=== PATIENT | female | born 1950 | race Caucasian/White ===

== ENCOUNTER → 2016-09-16 | Outpatient (CLI) | payer OTHER ==
[~2016-09-16] MED LIST: CZR50 PO; RANI300T2 PO; SIMV20TA2 PO; SYN88 PO
[2016-09-16 11:01] LABS: HEMATOCRIT 43.3 % (37-47); MEAN CELL VOLUME 91.9 fL (80-100); MEAN CORPUSCULAR HEMOGLOBIN 30.4 pg (25-34); MEAN PLATELET VOLUME 9.8 fL (7.4-10.4); PLATELET COUNT 133 K/uL (130-400); RED BLOOD COUNT 4.71 M/uL (4.2-5.4)
[2016-09-16 11:22] LABS: ALT/SGPT 27 U/L (12-78); BLOOD UREA NITROGEN 21 mg/dl (7-18); BUN/CREATININE RATIO 22.4 (10-20); CARBON DIOXIDE 28 mmol/L (21-32); CHLORIDE 107 mmol/L (98-107); CHOLESTEROL 182 mg/dl (0-200); CREATININE 0.95 mg/dl (0.60-1.20); GLUCOSE 106 mg/dl (70-99); POTASSIUM 3.9 mmol/L (3.5-5.1); SODIUM 142 mmol/L (136-145); TRIGLYCERIDES 113 mg/dl (0-150); VERY LOW DENSITY LIPOPROT CALC 23 mg/dl
[2016-09-16 11:23] LABS: CALCIUM 9.4 mg/dl (8.5-10.1)
[2016-09-16 11:32] LABS: ALB/GLOB RATIO 1.3 (0.9-2); ALKALINE PHOSPHATASE 59 U/L (45-117); AST/SGOT 20 U/L (15-37); CHOLESTEROL/HDL RATIO 3.3; HDL CHOLESTEROL 55 mg/dl; LDL CHOLESTEROL CALCULATED 104 mg/dl
[2016-09-16 13:06] LABS: BASO % 0.3 %; BASO ABS # 0.03 K/uL (0-0.2); COMPLETE YES; EOS % 1.2 %; IG% 0.1 %; LYMPH % 70.4 %; LYMPH ABS # 6.27 K/uL (1.2-3.4); MONO % 3.9 %; NEUT % 24.1 %; SMUDGE CELLS PRESENT
== END | disposition home or self-care (01) ==
LOC: C.LABSPEC 16:11
PROVIDERS: ATTEND Internal Medicine
DX: R73.09 Other abnormal glucose (principal); R31.29 Other microscopic hematuria

== ENCOUNTER → 2016-09-24 | Outpatient (CLI) | payer OTHER ==
[2016-09-24 15:01] LABS: URINE APPEARANCE CLEAR (CLEAR); URINE BILIRUBIN NEG (NEG); URINE COLOR YELLOW; URINE EPITHELIAL CELL AUTO 0-5 /lpf (0-5); URINE NITRITE POS (NEG); URINE PH 6.5 (4.5-7.5); URINE SPECIFIC GRAVITY 1.008 (1.000-1.030); UROBILINOGEN NEG (NEG)
[2016-09-24 15:16] LABS: MANUAL MICROSCOPIC REQUIRED? NO; REVIEW REQ? NO
== END | disposition home or self-care (01) ==
LOC: C.LAB1850 10:59
PROVIDERS: ATTEND Internal Medicine
DX: N39.0 Urinary tract infection, site not specified (principal)

== ENCOUNTER → 2017-01-18 | Outpatient (CLI) | payer OTHER ==
[2017-01-18 16:39] LABS: URINE APPEARANCE CLEAR (CLEAR); URINE BILIRUBIN NEG (NEG); URINE COLOR DK YELLOW; URINE EPITHELIAL CELL AUTO 20-30 /lpf (0-5); URINE NITRITE POS (NEG); URINE SPECIFIC GRAVITY 1.015 (1.000-1.030); UROBILINOGEN NEG (NEG)
[2017-01-18 16:46] LABS: MANUAL MICROSCOPIC REQUIRED? NO; REVIEW REQ? NO
== END | disposition home or self-care (01) ==
LOC: C.LAB1850 15:42
PROVIDERS: ATTEND Internal Medicine
DX: N39.0 Urinary tract infection, site not specified (principal)

== ENCOUNTER → 2017-03-01 | Outpatient (CLI) | payer OTHER ==
[2017-03-01 13:05] LABS: URINE APPEARANCE CLEAR (CLEAR); URINE BILIRUBIN NEG (NEG); URINE COLOR YELLOW; URINE NITRITE NEG (NEG); URINE PH 7.5 (4.5-7.5); URINE SPECIFIC GRAVITY 1.008 (1.000-1.030); UROBILINOGEN NEG (NEG); ZZUR CULT IF INDIC CLEAN CATCH NO
[2017-03-01 13:13] LABS: MANUAL MICROSCOPIC REQUIRED? YES; REVIEW REQ? NO
[2017-03-01 13:26] LABS: URINE RBC 0-4 /hpf (0-4)
[2017-03-01 13:27] LABS: URINE BACTERIA NEG (NEG)
== END | disposition home or self-care (01) ==
LOC: C.LABSPEC 12:19
PROVIDERS: ATTEND Internal Medicine
DX: N39.0 Urinary tract infection, site not specified (principal)

== ENCOUNTER → 2017-03-03 | Outpatient (CLI) | payer OTHER ==
[2017-03-03 18:02] LABS: BLOOD UREA NITROGEN 31 mg/dl (7-18); BUN/CREATININE RATIO 31.4 (10-20); CREATININE 0.99 mg/dl (0.60-1.20)
== END | disposition home or self-care (01) ==
LOC: C.LAB 16:08
PROVIDERS: ATTEND Nurse Practitioner Adult Health
DX: N28.9 Disorder of kidney and ureter, unspecified (principal)

== ENCOUNTER → 2017-03-21 | Outpatient (CLI) | payer OTHER ==
[~2017-03-21] MED LIST changes: +OPTIRAY 320 IV PRN
--- NOTE | 2017-03-21 10:08 | DIAGNOSTIC IMAGING REPORT ---
ABD/PELVIS COMBO CT DOSE: 1114.89 mGycm HISTORY: Renal lesion N28.9 Renal lesionnot diabetic, no latex allergy, iodine allergy TECHNIQUE: Multiaxial CT images of the abdomen and pelvis were performed pre and post intravenous contrast enhancement. A dose lowering technique was utilized adhering to the principles of ALARA. COMPARISON STUDY: 03/21/2017 FINDINGS: Minimal chronic atelectatic/fibrotic changes both lung bases liver is uniform throughout. Spleen pancreas remain unremarkable. There is a small hiatal hernia. Left kidney enhances uniformly. There are no abnormal renal calcifications. There is a posterior diaphragmatic hernia unchanged. The adrenal glands are normal. The right kidney continues to show a heterogeneous nodule lateral aspect lower abdomen maximum dimensions of 1.7 x 2.15 cm. This is unchanged compared to the prior study where maximum dimensions were 2.1 cm. Enhancement characteristics are similar. There continues to be components of fat within this structure raising the possibility of angiomyolipoma. The bowel pattern remains nonobstructive. There are several small retroperitoneal nodes none of which exceed 6 mm. IMPRESSION: 1. Stable heterogeneous nodule lower pole right kidney.. 2. Given the fact containment and minimal enhancement, the possibility of a benign angiomyolipoma must be considered. 3. Appropriate CT surveillance is suggested as follow-up. 4. Unchanging minimal fibrotic/atelectatic change at both lung bases. The above report was generated using voice recognition software. It may contain grammatical, syntax or spelling errors. Electronically signed by: Harpreet Zhu M.D. 03/21/2017 10:07 AM Dictated Date/Time: 03/21/2017 9:58 AM
== END | disposition home or self-care (01) ==
LOC: C.CTS 09:30
PROVIDERS: ATTEND Nurse Practitioner Adult Health
DX: N28.89 Other specified disorders of kidney and ureter (principal)

== ENCOUNTER → 2017-05-17 | Outpatient (CLI) | payer OTHER ==
[~2017-05-17] MED LIST changes: -OPTIRAY 320 IV PRN
== END | disposition home or self-care (01) ==
LOC: C.LAB1850 13:31
PROVIDERS: ATTEND Nurse Practitioner Adult Health
DX: N39.0 Urinary tract infection, site not specified (principal)

== ENCOUNTER → 2017-06-01 | Outpatient (CLI) | payer OTHER | END | disposition home or self-care (01) | LOC: C.LAB1850 11:44 | PROVIDERS: ATTEND Nurse Practitioner Adult Health | DX: N39.0 Urinary tract infection, site not specified (principal) ==

== ENCOUNTER → 2017-06-07 | Outpatient (CLI) | payer OTHER | END | disposition home or self-care (01) | LOC: C.LAB1850 12:50 | PROVIDERS: ATTEND Nurse Practitioner Adult Health | DX: N39.0 Urinary tract infection, site not specified (principal) ==

== ENCOUNTER → 2017-06-10 | Outpatient (CLI) | payer OTHER ==
[2017-06-10 12:04] LABS: HEMATOCRIT 39.8 % (37-47); HEMOGLOBIN 13.4 g/dL (12.0-16.0); MEAN CELL VOLUME 89.8 fL (80-100); MEAN CORPUSCULAR HEMOGLOBIN 30.2 pg (25-34); MEAN CORPUSCULAR HGB CONC 33.7 g/dl (32-36); MEAN PLATELET VOLUME 10.5 fL (7.4-10.4); PLATELET COUNT 141 K/uL (130-400); RED CELL DISTRIBUTION WIDTH CV 13.5 % (11.5-14.5); RED CELL DISTRIBUTION WIDTH SD 44.2 fL (36.4-46.3); WHITE BLOOD COUNT 8.51 K/uL (4.8-10.8)
[2017-06-10 12:36] LABS: ALKALINE PHOSPHATASE 68 U/L (45-117); ALT/SGPT 31 U/L (12-78); AST/SGOT 24 U/L (15-37); BLOOD UREA NITROGEN 22 mg/dl (7-18); CALCIUM 9.5 mg/dl (8.5-10.1); CARBON DIOXIDE 27 mmol/L (21-32); CHOLESTEROL 177 mg/dl (0-200); CREATININE 0.87 mg/dl (0.60-1.20); GLUCOSE 100 mg/dl (70-99); LDL CHOLESTEROL CALCULATED 101 mg/dl; POTASSIUM 3.7 mmol/L (3.5-5.1); SODIUM 136 mmol/L (136-145); TOTAL PROTEIN 7.6 gm/dl (6.4-8.2)
[2017-06-10 12:46] LABS: BASO % 0.2 %; BASO ABS # 0.02 K/uL (0-0.2); EOS % 1.2 %; IG# 0.01 K/uL (0.00-0.02); LYMPH % 73.3 %; LYMPH ABS # 6.24 K/uL (1.2-3.4); MONO % 1.4 %; MONO ABS # 0.12 K/uL (0.11-0.59); NEUT % 23.8 %; NEUT ABS # 2.02 K/uL (1.4-6.5)
== END | disposition home or self-care (01) ==
LOC: C.LAB1850 10:15
PROVIDERS: ATTEND Internal Medicine
DX: R73.09 Other abnormal glucose (principal); C91.10 Chronic lymphocytic leukemia of B-cell type not having achieved remission; E78.00 Pure hypercholesterolemia, unspecified; E03.9 Hypothyroidism, unspecified

== ENCOUNTER → 2017-06-14 | Outpatient (CLI) | payer OTHER ==
--- NOTE | 2017-06-14 14:08 | DIAGNOSTIC IMAGING REPORT ---
KUB HISTORY: Acute UTI N39.0 UTI (urinary tract infection)[id number] COMPARISON: CT abdomen and pelvis 03/21/2017 FINDINGS: The bowel gas pattern is non-obstructive. Mild to moderate stool volume throughout the colon. There is no organomegaly. Calcifications of the pelvis suggest phleboliths. No renal calculi. No ureteral calculi. No pneumoperitoneum or pneumatosis. No fracture. Mild dextroscoliosis of the lumbar spine. IMPRESSION: 1. No renal or ureteral stones. 2. Nonobstructive bowel gas pattern. Electronically signed by: Ankush Buchanan M.D. 06/14/2017 2:07 PM Dictated Date/Time: 06/14/2017 2:05 PM
== END | disposition home or self-care (01) ==
LOC: C.RAD1850 13:44
PROVIDERS: ATTEND Urology
DX: N39.0 Urinary tract infection, site not specified (principal)

== ENCOUNTER → 2017-08-08 | Outpatient (CLI) | payer OTHER | END | disposition home or self-care (01) | LOC: C.LAB1850 14:14 | PROVIDERS: ATTEND Nurse Practitioner Adult Health | DX: N39.0 Urinary tract infection, site not specified (principal) ==

== ENCOUNTER → 2017-08-18 | Outpatient (CLI) | payer OTHER | END | disposition home or self-care (01) | LOC: C.MAMM 08:49 | PROVIDERS: ATTEND Internal Medicine | DX: C91.90 Lymphoid leukemia, unspecified not having achieved remission (principal); D84.9 Immunodeficiency, unspecified; M85.89 Other specified disorders of bone density and structure, multiple sites; Z78.0 Asymptomatic menopausal state ==

== ENCOUNTER → 2017-11-04 | Outpatient (CLI) | payer OTHER ==
[~2017-11-04] MED LIST changes: +OPTIRAY 320 IV PRN
--- NOTE | 2017-11-04 08:40 | DIAGNOSTIC IMAGING REPORT ---
ANGIO ABD/PELVIS WITH CONTRAST CLINICAL HISTORY: 67 years-old Female presenting with RIGHT RENAL LESION. TECHNIQUE: Multidetector CT angiography of the abdomen and pelvis was performed after the administration of intravenous contrast. 3-D volumetric, curved planar reformatted (CPR), and/or maximum intensity projection (MIP) images were subsequently reconstructed for review. IV contrast: 118 mL of Optiray 320. A dose lowering technique was used consistent with the principles of ALARA (as low as reasonably achievable). Stenosis measurements were based on NASCET-like criteria. COMPARISON: 03/21/2017. CT DOSE (mGy.cm): The estimated cumulative dose is 554.92 mGy.cm. FINDINGS: Operating Systems Specialist topogram: Unremarkable. Vasculature: Abdominal aorta normal in course and caliber. Celiac, superior mesenteric, inferior mesenteric, and bilateral single renal arteries patent. Notably, there is a separate aortic origin of the common hepatic artery with the celiac axis supplies the left gastric and splenic arteries. Bilateral common, internal, and external iliac arteries patent. Bilateral common, superficial, and deep femoral arteries patent in their visualized portions. The renal mass at the lower pole the right kidney may have a small parasitic vessel supplying it as a branch of the right L1 lumbar artery (series 3 image 145). Remaining abdomen and pelvis: Lung bases: Minimal basilar opacities, likely atelectasis. Fat-containing Bochdalek hernia on the left noted. Normal heart size. No pericardial or pleural effusion. Liver: Normal morphology. No focal lesion allowing for the early arterial phase of contrast. Biliary: No intrahepatic or extrahepatic biliary ductal dilatation. Normal gallbladder. Pancreas: Normal. Spleen: Normal. Adrenal glands: Normal. Kidneys and ureters: Redemonstration of the heterogeneously enhancing exophytic 2.5 cm mass arising from the lower pole of the right kidney. This previous measured 2.4 cm. There is macroscopic fat contained within this lesion. Minor parasitic vessel vascular supply via the right L1 lumbar artery. No surrounding hemorrhage. Additional small focal fat evident as a cortical defect in the interpolar region of the right kidney, likely angiomyolipoma. No nephrolithiasis. No hydronephrosis. Extrarenal pelvises noted. Bladder: Focus of gas in the bladder possibly due to recent catheterization or instrumentation. Pelvic organs: Uterus surgically absent. No adnexal masses. Bowel: Moderate stool burden. Diverticulosis of the sigmoid colon. No surrounding inflammatory change. The appendix is normal. Feces in the terminal ileum may suggest delayed transit. No bowel obstruction. Small hiatal hernia. Peritoneal cavity: No free fluid or intraperitoneal gas. Lymph nodes: Prominent left common and external iliac lymph nodes measuring up to 10 mm in the short axis. These have not increased in size. Abdominal wall: Small fat-containing umbilical hernia. Musculoskeletal: Degenerative changes of the spine. IMPRESSION: 1. Essentially stable size of the exophytic mass arising from the lower pole of the right kidney. Vascular supply primarily via the right renal artery with a small component via parasitic supply from the right L1 lumbar artery. No hemorrhage. This may have minimally increased in size since 2012. The presence of macroscopic fat within this lesion is most suggestive of an angiomyolipoma. Rarely, renal cell carcinoma has been reported to contain macroscopic fat. Continued surveillance and urologic consultation recommended. 2. Additional smaller angiomyolipoma in the right kidney suggested. 3. Diverticulosis. 4. Borderline enlarged left common and left external iliac lymph nodes, unchanged. These may be reactive but are indeterminate. Attention on follow-up. Electronically signed by: Magnus Ho M.D. 11/04/2017 8:39 AM Dictated Date/Time: 11/04/2017 8:24 AM
== END | disposition home or self-care (01) ==
LOC: C.CTS 07:37
PROVIDERS: ATTEND Surgery Vascular Surgery
DX: D17.71 Benign lipomatous neoplasm of kidney (principal)

== ENCOUNTER 2022-09-22 11:11 | Inpatient (IN) ==
--- NOTE | 2022-09-22 12:18 | Emergency Department Note ---
History of Present Illness General Chief complaint: Infection Stated complaint: REF BY PT FOR AN IV, INFECTION Time Seen by Provider: 09/22/22 11:52 History of Present Illness Patient is a 72-year-old female with past medical history significant for hypothyroidism, hypertension, dyslipidemia, and CLL, who presents the emergency department for evaluation of urinary symptoms, and a positive urine culture as an outpatient. Patient has a history of angiomyolipoma of the right kidney, history of interstitial cystitis secondary to her CLL treatment, and frequent UTIs. She was seen by urology 2 weeks ago today after she developed dysuria, frequency and urgency. She unfortunately has multiple antibiotic aller gies/intolerances. She was placed on Macrobid x5 days. The LAUNDRY WASHER at urology sent her urine for a PCR, which was reported yesterday as positive. The patient was called yesterday and told that she needed to go to the emergency department for IV antibiotic therapy. Patient continues to report the ongoing urinary symptoms that are helped by taking OTC Azo. No abdominal pain, back or pain pain. No f ever although she did report some chills. No vomiting. Home Medications Medication Instructions Recorded Confirmed Type amlodipine 5 mg tablet 5 mg PO DAILY #90 tabs 06/08/22 09/22/22 Rx simvastatin 20 mg tablet 20 mg PO QPM #90 tabs 06/08/22 09/22/22 Rx levothyroxine 88 mcg tablet 88 mcg PO DAILY #90 tabs 08/30/22 09/22/22 Rx losartan 100 mg tablet 100 mg PO DAILY #90 tabs 08/30/22 09/22/22 Rx cholecalciferol (vitamin D3) 50 1,000 unit PO DAILY #90 tabs 09/08/22 09/22/22 History mcg (2,000 unit) tablet esomeprazole magnesium 20 mg 10 mg PO DAILY PRN Acid Reflux 09/08/22 09/22/22 History capsule,delayed release (Nexium) hydrocortisone 2.5 % topical cream 2.5 applic topical DAILY PRN 09/22/22 History with perineal applicator Hemorrhoids (Procto-Med HC) Allergies Allergy/AdvReac Type Severity Reaction Status Date / Time Cipro Allergy Severe CANT BREATH Verified 10/24/14 09:14 ciprofloxacin Allergy Severe CANT BREATH Verified 09/08/22 16:58 doxycycline Allergy Severe Chest Pain Verified 09/08/22 16:58 Sulfa (Sulfonamide Allergy Severe . Verified 09/08/22 16:58 Antibiotics) cefepime Allergy Intermediate red rash Verified 09/22/22 13:45 famotidine Allergy Intermediate Back Pain Verified 09/08/22 16:58 pseudoephedrine Allergy Intermediate HIVES Verified 09/08/22 16:58 RAUL Inhibitors Allergy Mild Cough Verified 09/08/22 16:58 clarithromycin Allergy Mild ` Verified 09/08/22 16:58 Macrolide Antibiotics Allergy Unknown Unknown Verified 09/22/22 11:47 papaya Allergy Unknown UNKNOWN Verified 09/08/22 16:58 Quinolones Allergy Unknown PT TAKING Verified 09/08/22 16:58 LEVAQUIN PRIOR TO ADM 03/26.GP sulfamethoxazole Allergy Unknown Unknown Verified 09/22/22 11:47 Iodinated Contrast Media Allergy Unknown Verified 09/22/22 11:47 Penicillins AdvReac Intermediate AMOXICILLIN--UPSET Verified 09/08/22 16:[address] CALL lisinopril AdvReac Cough Verified 09/22/22 11:49 clavulanate potassium Allergy Mild Dizziness Uncoded 09/08/22 16:58 famctidine AdvReac Back Pain Uncoded 09/22/22 11:47 Past Med/Surg History Medical History Acid reflux Actinic keratosis Angiomyolipoma of right kidney CLL (chronic lymphocytic leukemia) Headache Hypercholesterolemia Hypertension Hypothyroidism Vitamin A deficiency Surgical History H/O: hysterectomy History of lumpectomy Family History Brother Prostate cancer Lung cancer Esophageal cancer Mother Ischemic stroke Myocardial infarction Sister Brain cancer Denies family history of Ovarian cancer Breast cancer Colorectal cancer Social History Smoking Status: Never smoker Second Hand Exposure: Yes; Do You Dip or Chew Tobacco: No; Tobacco Cessation Education Requested by Patient: No Hx Alcohol Use: No Hx Substance Use: No Preferred Language: Polish Communication Ability: Effective Lacquerer Required: No Beliefs That Will Affect Care: None marital status: Current Living Situation: Spouse current occupational status: retired Other Information That Helps Us Care for You: No Feels Safe at Home: Yes Safety Concerns: Feels Safe At This Time Childhood Exposure to Second-Hand Smoke: Yes Dental Care, Regularly: Yes Physical Activity Frequency: 3-4 Times per Week Seatbelt Use: always Sunscreen Use: Yes Assistive Devices: None Review of Systems A total of 10 systems reviewed and were otherwise negative Physical Exam Vital Signs Vital Signs - 24 hr 09/22/22 11:17 09/22/22 12:31 Temperature 36.6 C Temperature Source Temporal Artery Scan Pulse Rate 75 68 Respiratory Rate 20 Respiratory Effort / Characteristics Non-Labored Spontaneous Respiratory Depth Normal Blood Pressure 138/83 Blood Pressure Mean 101 Pulse Oximetry 97 Oxygen Delivery Method Room Air Sepsis Recent Fever Within 48 Hours No Sepsis New/Unexplained Change in Mental Status N/A Sepsis Action Taken by Nursing No Action Required CONSTITUTIONAL: Pleasant, well-appearing 72-year-old female who is awake and alert and in no acute distress. EYES: Pupils equal, round, reactive to light and accommodation. EOMs intact without nystagmus. Sclera are anicteric. ENT: Tympanic membranes intact, with normal landmarks. External canals are clear. Oral and nasopharynx are clear. Mucous membranes are moist, no lesions, tongue and gums appear normal. CARDIOVASCULAR: Regular rate and rhythm. Peripheral pulses easily palpable. RESPIRATORY: Breath sounds equal and clear to auscultation. ABDOMEN: Bowel sounds are present. The abdomen is soft, nontender nondistended. No guarding or rebound. No CVA tenderness. INTEGUMENTARY: No lesions or rash, normal skin turgor. LYMPH: No lymphadenopathy. Course Course The patient was seen and assessed as above. External medical records are re viewed. Her urology notes recently, and the outpatient urine PCR which is in the system were reviewed. Her urine culture was positive for Enterococcus faecium, E. coli and Proteus mirabilis. IV lock was initiated and laboratory studies were collected including CBC with differential, CMP, urinalysis, blood cultures x2 and a COVID test. I did discuss the patient with Pharm.D., Dorothea Sheehan, for assistance with regard to the urine culture, and the patient's allergy list. She thoroughly investigated the patient's reactions, and old cultures and ultimately felt that the best regimen for the patient would be Dapto 8 mg/kg and Avycaz 2.5 g IV. These were ordered. Case reviewed with attending physician, Dr. Castorena. Laboratory studies per my interpretation note a mildly elevated white count at 13,800, with increased lymphocytes and monocytes. No left shift. No anemia or thrombocytopenia. Electrolytes are without significant abnormality requiring correction, BUN 33, creatinine 0.97, not indicative of CHRIS. Transaminases are normal. Urine microscopy notes trace blood and is positive for nitrates, but is otherwise clear. A COVID test was negative. Patient was reassessed. Laboratory studies were reviewed with her as well as the plan for antibiotics. Given her multiple allergies and intolerances as well as the complicated nature of the urine culture, she will require IV treatment that will need to be initiated here in the hospital. She was in agreement. After review of the information above and other included data, I feel the patient requires admission. Patient was reviewed with [facility] hospitalist, Dr. Concepcion, for inpatient care and management. Administered Medications Enoxaparin Sodium (Enoxaparin Inj 40 Mg/0.4 Ml Syr) 40 mg SQ Q24H ZAY Stop: 10/22/22 16:59 Last Admin: 09/22/22 16:15 Dose: 40 mg Documented By: LEOLA Discontinued Medications Ceftazidime/Avibactam 2.5 gm/ (Sodium Chloride) 62 mls @ 31 mls/hr IV NOW STA; Protocol Stop: 09/22/22 15:33 Last Infusion: 09/22/22 16:06 Dose: 0 mls/hr Documented By: Admin: 09/22/22 14:28 Dose: 31 mls/hr Documented By: OSCAR Daptomycin 475 mg/ Syringe 9.5 mls @ 4.75 mls/min IV NOW STA; Protocol Stop: 09/22/22 13:43 Last Admin: 09/22/22 14:28 Dose: 4.75 mls/min Documented By: OSCAR Medical Decision Making Differential Diagnosis Differential diagnoses entertained included UTI, exacerbation of underlying interstitial cystitis, pyelonephritis, kidney stone, renal abscess, mass or malignancy, among others. Medical Records Attestation: I reviewed the patient's medical records. Home Medications Current Medication List: was personally reviewed by me Laboratory Data Attestation: I reviewed the patient's lab results. 09/22/22 11:35 09/22/22 11:35 Lab Results 09/22/22 09/22/22 09/22/22 Range/Units 11:35 11:35 12:35 WBC 13.86 H (4.8-10.8) K/ul RBC 4.28 (4.20-5.40) M/uL Hgb 13.0 (12.0-16.0) g/dl Hct 39.2 (37.0-47.0) % MCV 91.6 (80.0-100.0) fL MCH 30.4 (25.0-34.0) pg MCHC 33.2 (32.0-36.0) g/dL RDW Std Deviation 45.1 (36.4-46.3) fL RDW Coeff of Maria Isabel 13.5 (11.5-14.5) % Plt Count 169 (130-400) K/uL MPV 10.1 (9.4-12.4) fL Immature Gran % (Auto) 0.1 % Neut % (Auto) 20.1 % Lymph % (Auto) 67.4 % [place] % (Auto) 11.0 % Eos % (Auto) 0.9 % Baso % (Auto) 0.5 % Neut # (Auto) 2.78 (1.40-6.50) K/uL Lymph # (Auto) 9.34 H (1.2-3.4) K/uL [place] # (Auto) 1.53 H (0.11-0.59) K/uL Eos # (Auto) 0.12 (0-0.50) K/uL Baso # (Auto) 0.07 (0-0.2) K/uL Immature Gran # (Auto) 0.02 (0.01-0.20) K/uL Smudge Cells Present Echinocytes 1+ Sodium 139 (136-145) mmol/L Potassium 4.1 (3.5-5.1) mmol/L Chloride 107 (98-107) mmol/L Carbon Dioxide 24 (21-32) mmol/L Anion Gap 8 (3-11) BUN 33 H (6-23) mg/dl Creatinine 0.97 (0.6-1.2) mg/dl Est Cr Clr Drug Dosing 53.6 ml/min Est GFR ( Amer) 67.6 ml/min Est GFR (Non-Af Amer) 58.3 ml/min BUN/Creatinine Ratio 34.0 H (10-20) Glucose 106 H (70-99(Fasting)) mg/dl Calcium 9.5 (8.6-10.3) mg/dl Total Bilirubin 0.6 (0.2-1.0) mg/dl AST 19 (13-39) U/L ALT 18 (7-52) U/L Alkaline Phosphatase 78 (34-104) U/L Total Protein 6.9 (6.0-8.3) gm/dl Albumin 4.3 (3.4-5.0) gm/dl Globulin 2.6 (2.5-4.0) gm/dl Albumin/Globulin Ratio 1.7 (0.9-2) Urine Color Urine Appearance (Clear) Urine pH (4.5-7.5) Ur Specific [place] (1.000-1.030) Urine Protein (Negative) Urine Glucose (UA) (Negative) Urine Ketones (Negative) Urine Blood (Negative) Urine Nitrite (Negative) Urine Bilirubin (Negative) Urine Urobilinogen (Negative) Ur Leukocyte Esterase (Negative) Urine WBC (Auto) (0-5) /hpf Urine RBC (Auto) (0-4) /hpf U Hyaline Cast (Auto) (0-5) /lpf U Epithel Cells (Auto) (0-5) /lpf Urine Bacteria (Auto) (Negative) IgG 545.9 L (635-1741) mg/dl IgA 82.8 (70-400) mg/dl IgM < 20.0 L (45-281) mg/dl SARS-CoV-2, RNA, NAAT NEGATIVE (NEGATIVE) 09/22/22 Range/Units 13:00 WBC (4.8-10.8) K/ul RBC (4.20-5.40) M/uL Hgb (12.0-16.0) g/dl Hct (37.0-47.0) % MCV (80.0-100.0) fL MCH (25.0-34.0) pg MCHC (32.0-36.0) g/dL RDW Std Deviation (36.4-46.3) fL RDW Coeff of Maria Isabel (11.5-14.5) % Plt Count (130-400) K/uL MPV (9.4-12.4) fL Immature Gran % (Auto) % Neut % (Auto) % Lymph % (Auto) % [place] % (Auto) % Eos % (Auto) % Baso % (Auto) % Neut # (Auto) (1.40-6.50) K/uL Lymph # (Auto) (1.2-3.4) K/uL [place] # (Auto) (0.11-0.59) K/uL Eos # (Auto) (0-0.50) K/uL Baso # (Auto) (0-0.2) K/uL Immature Gran # (Auto) (0.01-0.20) K/uL Smudge Cells Echinocytes Sodium (136-145) mmol/L Potassium (3.5-5.1) mmol/L Chloride (98-107) mmol/L Carbon Dioxide (21-32) mmol/L Anion Gap (3-11) BUN (6-23) mg/dl Creatinine (0.6-1.2) mg/dl Est Cr Clr Drug Dosing ml/min Est GFR ( Amer) ml/min Est GFR (Non-Af Amer) ml/min BUN/Creatinine Ratio (10-20) Glucose (70-99(Fasting)) mg/dl Calcium (8.6-10.3) mg/dl Total Bilirubin (0.2-1.0) mg/dl AST (13-39) U/L ALT (7-52) U/L Alkaline Phosphatase (34-104) U/L Total Protein (6.0-8.3) gm/dl Albumin (3.4-5.0) gm/dl Globulin (2.5-4.0) gm/dl Albumin/Globulin Ratio (0.9-2) Urine Color Dark Yellow Urine Appearance Clear (Clear) Urine pH 5.5 (4.5-7.5) Ur Specific [place] 1.009 (1.000-1.030) Urine Protein Negative (Negative) Urine Glucose (UA) Negative (Negative) Urine Ketones Negative (Negative) Urine Blood Trace H (Negative) Urine Nitrite Positive A (Negative) Urine Bilirubin Negative (Negative) Urine Urobilinogen Negative (Negative) Ur Leukocyte Esterase Negative (Negative) Urine WBC (Auto) 1-5 (0-5) /hpf Urine RBC (Auto) 0-4 (0-4) /hpf U Hyaline Cast (Auto) 0 (0-5) /lpf U Epithel Cells (Auto) 0-5 (0-5) /lpf Urine Bacteria (Auto) Negative (Negative) IgG (635-1741) mg/dl IgA (70-400) mg/dl IgM (45-281) mg/dl SARS-CoV-2, RNA, NAAT (NEGATIVE) Imaging Data Attestation: I personally reviewed and interpreted this imaging study as follows: Radiologist's Impression: Renal Ultrasound 09/22/22 14:19 RENAL ULTRASOUND HISTORY: Acute bilateral flank pain . History of a 3.8 cm echogenic lesion of the lower pole right kidney. high risk UTI COMPARISON: 01/04/2019, 11/04/2017. FINDINGS: Right kidney: 8.8 x 3.8 x 3.4 cm. There are 2 echogenic lesions of the right kidney again noted. The inferior pole lesion measures 2.4 x 2.1 x 2.1 cm. The interpolar lesion measures 0.6 x 1.2 x 0.8 cm. Findings appear stable from prior. No hydronephrosis. Normal corticomedullary differentiation and cortical thickness. Left kidney: 10.1 x 3.3 x 3.5 cm. No hydronephrosis. Normal corticomedullary differentiation and cortical thickness. Bladder: Bladder wall thickening with partial distention. Only the right ureteral jet is identified. IMPRESSION: 1. No renal calculi or hydronephrosis identified. 2. Echogenic lesions of the right kidney appear stable compared to the 2019 study, probable angiomyolipomata. Attention on follow-up recommended. 3. Partial distention of the urinary bladder. ACT 112: Negative or not required by law. Electronically signed by: José Miguel Buchanan M.D. 09/22/2022 6:09 PM MDM Narrative See ED Course. Impression & Plan Complicated urinary tract infection, Immunocompromised, Allergy to multiple antibiotics Discharge Plan Visit Data Chief Complaint: Infection Stated Complaint: REF BY PT FOR AN IV, INFECTION ED Provider: Luiz Castorena ED Midlevel Provider: Marcellus Zhu Discharge Problem: Complicated urinary tract infection, Immunocompromised, Allergy to multiple antibiotics Patient Disposition: Admitted As Inpatient Discharge Instructions Interventions: ED Discharge Assessment Last Done: 09/22/22 15:12
[2022-09-22 12:47] LABS: Alanine Aminotransferase 18 U/L (7-52); Albumin Globulin Ratio 1.7 (0.9-2); Albumin Level 4.3 gm/dl (3.4-5.0); Alkaline Phosphatase 78 U/L (34-104); Anion Gap 8 (3-11); Aspartate Aminotransferase 19 U/L (13-39); Bilirubin,Total 0.6 mg/dl (0.2-1.0); Blood Urea Nitrogen 33 mg/dl (6-23); Calcium 9.5 mg/dl (8.6-10.3); Carbon Dioxide 24 mmol/L (21-32); Chloride 107 mmol/L (98-107); Creatinine Clr Calc Pharmacy 53.6 ml/min; Est GFR (African American) 67.6 ml/min; Est GFR (Non-African American) 58.3 ml/min; Globulin 2.6 gm/dl (2.5-4.0); Glucose 106 mg/dl (70-99(Fasting)); Potassium 4.1 mmol/L (3.5-5.1); Sodium 139 mmol/L (136-145); Total Protein 6.9 gm/dl (6.0-8.3)
[2022-09-22 12:51] LABS: Hematocrit (blood only) 39.2 % (37.0-47.0); Mean Corpuscular Hemoglobin 30.4 pg (25.0-34.0); Mean Corpuscular Hgb Conc 33.2 g/dL (32.0-36.0); Mean Corpuscular Volume 91.6 fL (80.0-100.0); Mean Platelet Volume 10.1 fL (9.4-12.4); Platelet Count 169 K/uL (130-400); RDW Coefficient of Variation 13.5 % (11.5-14.5); RDW Standard Deviation 45.1 fL (36.4-46.3); Red Blood Count 4.28 M/uL (4.20-5.40); White Blood Count 13.86 K/ul (4.8-10.8)
[2022-09-22 13:31] LABS: Appearance Urine Clear (Clear); Bacteria Urine Automated Negative (Negative); Bilirubin Urine Negative (Negative); Blood Urine Trace (Negative); Cast Urine Automated 0 /lpf (0-5); Color Urine Dark Yellow; Epithelial Cell Urine Auto 0-5 /lpf (0-5); Glucose Urine UA Negative (Negative); Ketones Urine Negative (Negative); Leukocyte Esterase Urine Negative (Negative); Nitrite Urine Positive (Negative); Protein Urine Negative (Negative); RBC Urine Automated 0-4 /hpf (0-4); Specific Gravity Urine 1.009 (1.000-1.030); Urobilinogen Urine Negative (Negative); pH Urine 5.5 (4.5-7.5)
[2022-09-22] MEDS ORDERED: DAPTOmycin 475 MG in SYRINGE 0 ML IV STA (13:42)
[2022-09-22 13:46] LABS: Basophils # (auto) 0.07 K/uL (0-0.2); Basophils % (auto) 0.5 %; Echinocytes 1+; Eosinophils # (auto) 0.12 K/uL (0-0.50); Eosinophils % (auto) 0.9 %; Immature Granulocytes # (auto) 0.02 K/uL (0.01-0.20); Immature Granulocytes % (auto) 0.1 %; Lymphocytes # (auto) 9.34 K/uL (1.2-3.4); Lymphocytes % (auto) 67.4 %; Monocytes # (auto) 1.53 K/uL (0.11-0.59); Neutrophils # (auto) 2.78 K/uL (1.40-6.50); Neutrophils % (auto) 20.1 %; Smudge Cells Present
--- NOTE | 2022-09-22 14:00 | Emergency Department Note ---
ED Visit Note I was consulted by the Advanced Practice Provider. I saw the patient personally and performed a substantive portion of the visit. This includes aspects of the HPI, MDM, diagnostic interpretations, and disposition/plan. The patient has a resistant urinary infection. She is being hospitalized for IV antibiotic therapy. The antibiotics have been chosen by pharmacy. .
--- NOTE | 2022-09-22 14:14 | History & Physical Report ---
Date of Service September 22, 2022 Assessment & Plan (1) UTI (urinary tract infection): Plan: Acute urinary tract infection. Acute, unstable. Complicated with baseline immu nosuppression and extended resistance patterns Leukocytosis of 13 Creatinine at baseline, admitting creatinine 0.97 UA with nitrites/blood on admission. Patient had a PCR positive urine as outpa tient Outpatient lab results and scanned diagnostics tab. E. coli, Enterococcus facalis, Proteus detected by PCR with multiple pooled resistance noted. See 09/16/2022 report. Patient placed on Avycaz/daptomycin in ER after discussion with pharmacy. We will continue this pending culture results Patient has had right flank pain although was gardening, no CVA tenderness at time of exam. Given high risk and history of flank pain kidney/bladder ultrasound pending Blood cultures pending History of angiomyolipoma of right kidney, chronic Following as outpatient, 3.5 cm - Renal US ordered as noted CLL, 13q14d+, chronic with IgG levels pending Received treatment 2004 from outside hospital with no clear records of what this was - WBC improved from prior on admit, 13 from 16 w/ neutrophilic expansion CLL relapse 2011 with B symptoms, treated with pentostatin/Cytoxan/rituximab 5 cycles last October 2011 Subsequently with hypogammaglobulinemia with periodic IVIG mostly in winter Last IgG level 06/2022 824; repeat levels pending If IgG levels were low may benefit from IVIG infusion, will discuss with oncology. If IgG levels are normal will defer this at this time History of vasovagal syncope, chronic Patient with prodrome, not suspected to be cardiogenic in the past. - NO episodes since her episode - No chest pain, chest pressure, syncope or presyncope on admit but has had severe dizzy spells recently, none morning of or at time of admission EKG pending. If normal will monitor symptomatically on medical surgical bed, if EKG with any abnormalities we will follow on medical telemetry DVT prophylaxis: Lovenox Diet: Regular Disposition: Medical telemetry given history of presyncope, downgrade if symptomatically stable and EKG without acute findings CODE STATUS: Full code (2) CLL (chronic lymphocytic leukemia): (3) Hypothyroidism: (4) Hypertension: (5) Hypercholesterolemia: History of Present Illness Primary Care Provider: MD Felipe Beltrana is a 72-year-old female with past medical history of hypertension, hyperlipidemia, CLL, and hypothyroidism with a positive outpatient culture indicative of UTI; due to multiple antibiotic allergies and intolerances he requires IV antibiotic therapy. Antibiotic allergies: Ciprofloxacin (difficulty breathing), cefepime (rash), macrolides, sulfa. PCN allergy is not accurate) 1 week before had a UTI. Called Dr. Tapia office and brought in a urine sample. Initial sample was lost so on September 16 gave a repeat sample and was placed on macrobid. Was called back with PCR+ result showing resistance and recommended to go to the ER. She has been gardening lately, but has had some R flank pain which has been worst. Has a known kidney cyst on that side. Thinks is could be a muscle +chills last night, no fever No nausea or vomiting +dysuria, +polyuria and urgency with some incontinence No chest pain or chest pressure NO shortness of breath Hx CLL with regular monitoring as outpatient. Last Ig Levels OK, IVIG q6m. not due for a few more months. Leukocytosis baseline around 15-16 Medical History: Reviewed Medications: Reviewed Surgical History: Reviewed Family history: Reviewed Allergies: Reviewed, multiple allergies. See scanned photo below Social History: Reviewed Code Status: FUll [place]de Allergies Allergy/AdvReac Type Severity Reaction Status Date / Time Cipro Allergy Severe CANT BREATH Verified 10/24/14 09:14 ciprofloxacin Allergy Severe CANT BREATH Verified 09/08/22 16:58 doxycycline Allergy Severe Chest Pain Verified 09/08/22 16:58 Sulfa (Sulfonamide Allergy Severe . Verified 09/08/22 16:58 Antibiotics) cefepime Allergy Intermediate red rash Verified 09/22/22 13:45 famotidine Allergy Intermediate Back Pain Verified 09/08/22 16:58 pseudoephedrine Allergy Intermediate HIVES Verified 09/08/22 16:58 RAUL Inhibitors Allergy Mild Cough Verified 09/08/22 16:58 clarithromycin Allergy Mild ` Verified 09/08/22 16:58 Macrolide Antibiotics Allergy Unknown Unknown Verified 09/22/22 11:47 papaya Allergy Unknown UNKNOWN Verified 09/08/22 16:58 Quinolones Allergy Unknown PT TAKING Verified 09/08/22 16:58 LEVAQUIN PRIOR TO ADM 03/26.GP sulfamethoxazole Allergy Unknown Unknown Verified 09/22/22 11:47 Iodinated Contrast Media Allergy Unknown Verified 09/22/22 11:47 Penicillins AdvReac Intermediate AMOXICILLIN--UPSET Verified 09/08/22 16:[address] CALL lisinopril AdvReac Cough Verified 09/22/22 11:49 clavulanate potassium Allergy Mild Dizziness Uncoded 09/08/22 16:58 famctidine AdvReac Back Pain Uncoded 09/22/22 11:47 Home Medications Medication Instructions Recorded Confirmed Type amlodipine 5 mg tablet 5 mg PO DAILY #90 tabs 06/08/22 09/08/22 Rx simvastatin 20 mg tablet 20 mg PO QPM #90 tabs 06/08/22 09/08/22 Rx tramadol 50 mg tablet 50 mg PO Q8H PRN pain #30 tabs 07/22/22 09/08/22 Rx levothyroxine 88 mcg tablet 88 mcg PO DAILY #90 tabs 08/30/22 09/08/22 Rx losartan 100 mg tablet 100 mg PO DAILY #90 tabs 08/30/22 09/08/22 Rx cholecalciferol (vitamin D3) 50 1,000 unit PO DAILY #90 tabs 09/08/22 09/08/22 History mcg (2,000 unit) tablet esomeprazole magnesium 20 mg 10 mg PO DAILY PRN 09/08/22 09/08/22 History capsule,delayed release (Nexium) nitrofurantoin 100 mg PO BID 2 days #4 caps 09/10/22 09/10/22 Rx monohydrate/macrocrystals 100 mg capsule (Macrobid) Past Med/Surg History Medical History Acid reflux Actinic keratosis Angiomyolipoma of right kidney CLL (chronic lymphocytic leukemia) Headache Hypercholesterolemia Hypertension Hypothyroidism Vitamin A deficiency Surgical History H/O: hysterectomy History of lumpectomy Family History Brother Prostate cancer Lung cancer Esophageal cancer Mother Ischemic stroke Myocardial infarction Sister Brain cancer Denies family history of Ovarian cancer Breast cancer Colorectal cancer Social History Smoking Status: Never smoker Second Hand Exposure: No; Do You Dip or Chew Tobacco: No; Hx Alcohol Use: No Hx Substance Use: No Preferred Language: Luxembourgish Communication Ability: Effective 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 NAD. Cooperative. HEENT: Atraumatic, normocephalic. Pulm: CTAB A&P. -wheezes, -rales, -rhonchi. Symmetrical chest rise. No increased work of breathing. No respiratory distress. Cardiac: RRR, -mrg. Radial pulses intact and symmetrical. Abdominal: Nontender, nondistended, soft. BS present. NO CVA TTP at time of exam Ext; Warm, dry Results & Data Results & Data Vital Signs (Past 12 Hours) Vital Signs Temp Pulse Resp BP Pulse Ox O2 Del Method 09/22/22 12:31 68 09/22/22 11:17 36.6 C 75 20 138/83 97 Room Air PG Care Time/CCT Total # of Minutes Spent Total Time Spent with Patient: Total time spent is greater than 50% in coordination of care (as documented) at patient's floor/unit and/or counseling patient: Coding Level of Care Code 19342 INT INP/OBS CARE 3/75MIN Diagnoses UTI (urinary tract infection) N39.0 CLL (chronic lymphocytic leukemia) C91.90 Hypothyroidism E03.9 Hypertension I10 Hypercholesterolemia E78.00
[2022-09-22 15:28] LABS: Immunoglobulin A 82.8 mg/dl (70-400); Immunoglobulin G 545.9 mg/dl (635-1741); Immunoglobulin M < 20.0 mg/dl (45-281)
[2022-09-22] MEDS ORDERED: ACETAMINOPHEN 325 MG TAB PO PRN (15:38)
[2022-09-22] MEDS ORDERED: diphenhydrAMINE 50 MG/ML VIAL IV PRN (15:38)
[2022-09-22] MEDS ORDERED: EPINEPHrine INJ 1 MG/ML AMP IM PRN (15:38)
[2022-09-22] MEDS: ENOXAPARIN INJ 40 MG/0.4 ML SYR SQ SCH (16:15)
--- NOTE | 2022-09-22 18:10 | Ultrasound Report ---
RENAL ULTRASOUND HISTORY: Acute bilateral flank pain . History of a 3.8 cm echogenic lesion of the lower pole right ki dney. high risk UTI COMPARISON: 01/04/2019, 11/04/2017. FINDINGS: Right kidney: 8.8 x 3.8 x 3.4 cm. There are 2 echogenic lesions of the right kidney again noted. The inferior pole lesion measures 2.4 x 2.1 x 2.1 cm. The interpolar lesion measures 0.6 x 1.2 x 0.8 cm. Findings appear stable from prior. No hydronephrosis. Normal corticomedullary differentiation and cor tical thickness. Left kidney: 10.1 x 3.3 x 3.5 cm. No hydronephrosis. Normal corticomedullary differentiation and anson ical thickness. Bladder: Bladder wall thickening with partial distention. Only the right ureteral jet is identified. IMPRESSION: 1. No renal calculi or hydronephrosis identified. 2. Echogenic lesions of the right kidney appear stable compared to the 2019 study, probable angiomyol ipomata. Attention on follow-up recommended. 3. Partial distention of the urinary bladder. ACT 112: Negative or not required by law. Electronically signed by: José Miguel Buchanan M.D. 09/22/2022 6:09 PM
[2022-09-22] MEDS ORDERED: IMMUNE GLOBULIN (HUMAN) SOLN IV ONE (19:56)
[2022-09-22] MEDS ORDERED: Octagam 10% IVIG 5 gram bottle IV SCH (21:00)
[2022-09-22] MEDS: LOSARTAN POTASSIUM 50 MG TAB PO SCH (22:05)
[2022-09-22] MEDS: LEVOTHYROXINE SODIUM 88 MCG TABLET PO SCH (22:05)
[2022-09-22] MEDS: SIMVASTATIN 20 MG TAB PO SCH (22:06)
[2022-09-22] MEDS ORDERED: Octagam 10% IVIG 10 gram bottle IV SCH (22:10)
[2022-09-23] MEDS: amLODIPine BESYLATE 5 MG TAB PO SCH (08:36)
[2022-09-23 09:12] LABS: Hematocrit (blood only) 37.7 % (37.0-47.0); Hemoglobin 12.4 g/dl (12.0-16.0); Mean Corpuscular Hemoglobin 30.1 pg (25.0-34.0); Mean Corpuscular Hgb Conc 32.9 g/dL (32.0-36.0); Mean Corpuscular Volume 91.5 fL (80.0-100.0); Mean Platelet Volume 9.8 fL (9.4-12.4); Platelet Count 141 K/uL (130-400); RDW Coefficient of Variation 13.4 % (11.5-14.5); RDW Standard Deviation 45.1 fL (36.4-46.3); Red Blood Count 4.12 M/uL (4.20-5.40); White Blood Count 10.04 K/ul (4.8-10.8)
[2022-09-23 10:03] LABS: Basophils # (auto) 0.04 K/uL (0-0.2); Basophils % (auto) 0.4 %; Eosinophils # (auto) 0.14 K/uL (0-0.50); Eosinophils % (auto) 1.4 %; Immature Granulocytes # (auto) 0.02 K/uL (0.01-0.20); Immature Granulocytes % (auto) 0.2 %; Lymphocytes # (auto) 7.94 K/uL (1.2-3.4); Lymphocytes % (auto) 79.1 %; Monocytes # (auto) 0.32 K/uL (0.11-0.59); Monocytes % (auto) 3.2 %; Neutrophils # (auto) 1.58 K/uL (1.40-6.50); Neutrophils % (auto) 15.7 %
[2022-09-23 10:26] LABS: Potassium 3.7 mmol/L (3.5-5.1)
[2022-09-23 10:32] LABS: BUN Creatinine Ratio 27.2 (10-20); Creatinine Clr Calc Pharmacy 51.7 ml/min; Est GFR (African American) 72.1 ml/min; Est GFR (Non-African American) 62.2 ml/min
[2022-09-23] MEDS: DAPTOmycin 475 MG in SYRINGE 0 ML IV SCH (15:09)
--- NOTE | 2022-09-23 16:11 | Hospitalist Progress Note ---
Date of Service September 23, 2022 Assessment & Plan (1) UTI (urinary tract infection): Plan: Acute urinary tract infection. Acute, unstable. Complicated with baseline immu nosuppression and extended resistance patterns - moderate risk Leukocytosis of 13.86 on admit, reviewed cbc today, wbc normalized to 10.04 Creatinine at baseline, admitting creatinine 0.97, reviewed BMP, Cr stable at 0.92 UA with nitrites/blood on admission. Patient had a PCR positive urine as outpatient Outpatient lab results and scanned diagnostics tab. E. coli, Enterococcus faecalis, Proteus detected by PCR with multiple pooled resistance noted. See 09/16/2022 report. Patient placed on Avycaz/daptomycin in ER after discussion with pharmacy. We will continue this pending culture results Blood cultures pending - NGTD - Unfortunately, urine cx with multiple organisms present, will need to d/w ID to determine best outpatient regimen for d/c (2) CLL (chronic lymphocytic leukemia): Plan: Chronic/stable Received treatment 2004 from outside hospital with no clear records of what this was - WBC improved from prior on admit, 13 from 16 w/ neutrophilic expansion CLL relapse 2011 with B symptoms, treated with pentostatin/Cytoxan/rituximab 5 cycles last October 2011 Subsequently with hypogammaglobulinemia with periodic IVIG mostly in winter Last IgG level 06/2022 824 IgG levels low, IgM levels low. Discussed briefly with oncology. Reasonable to give 200 mg/kg IVIG infusion, ordered (3) Hypothyroidism: Plan: Chronic/stable - Continue Levothyroxine 88mcg daily (4) Hypertension: Plan: Chronic/stable - Continue Losartan (5) Angiomyolipoma of right kidney: Plan: History of angiomyolipoma of right kidney, chronic Following as outpatient, 3.5 cm - Renal US ordered - bladder wall thickening and stable (6) Vasovagal syncope: Plan: Chronic/stable Patient with prodrome, not suspected to be cardiogenic in the past. - NO episodes since her June/July episode - No chest pain, chest pressure, syncope or presyncope on admit but has had severe dizzy spells recently, none morning of or at time of admission EKG NSR w/o acute changes. Plan Downgrade off of tele to med/surg. Repeat labs ordered for tomorrow. Continue antibiotics as outlined above. Anticipate home tomorrow once an outpatient antibiotic treatment plan is in place. Plan to be d/w Dr. Chun. Admission and Anticipated Discharge Date Admission Date: September 22, 2022 Supervising Physician Co-Signing Physician Notes PA Supervision Note: I did not personally see or examine the patient. I verified all bedolla points and agree with LEISA Melchor with the following exceptions and/or additions: none Subjective Patient seen on daily rounds this morning. She reports feeling well and has no complaints. She received IVIG infusion yesterday. Denies abd pain or back pain, no specific urinary symptoms at present. No abd pain, n/v, f/c. Physical Exam Physical Exam: GENERAL: 72 yo well-developed, well-nourished F. AAOx4. NAD. LUNGS: Clear to auscultation bilaterally. No W/R/R. CARDIOVASCULAR: Regular rate and rhythm. ABDOMEN: Soft, non-tender and non-distended. BS normoactive x 4 quad. EXTREMITIES: No edema. Non-tender. Peripheral pulses +2/4. Results & Data Results & Data Vital Signs (Past 12 Hours) Vital Signs Temp Pulse Pulse Resp BP BP Pulse Ox 09/23/22 15:51 36.5 C 74 18 155/88 H 95 09/23/22 15:41 63 09/23/22 11:53 36.6 C 73 20 136/72 96 09/23/22 08:04 36.6 C 57 L 18 112/67 93 09/23/22 07:30 59 L O2 Del Method 09/23/22 15:51 Room Air 09/23/22 15:41 09/23/22 11:53 Room Air 09/23/22 08:04 Room Air 09/23/22 07:30 Laboratory Results 09/23/22 08:34 09/23/22 08:34 PG Care Time/CCT Total # of Minutes Spent Total Time Spent with Patient: Total time spent is greater than 50% in coordination of care (as documented) at patient's floor/unit and/or counseling patient: Coding Level of Care Code 99782 SUB INP/OBS CARE 2/35MIN Diagnoses UTI (urinary tract infection) N39.0 CLL (chronic lymphocytic leukemia) C91.90 Hypothyroidism E03.9 Hypertension I10 Angiomyolipoma of right kidney D30.01 Vasovagal syncope R55
[2022-09-23] MEDS: ENOXAPARIN INJ 40 MG/0.4 ML SYR SQ SCH (17:11)
[2022-09-23] MEDS: LOSARTAN POTASSIUM 50 MG TAB PO SCH (21:04)
[2022-09-23] MEDS: SIMVASTATIN 20 MG TAB PO SCH (21:05)
[2022-09-23] MEDS: LEVOTHYROXINE SODIUM 88 MCG TABLET PO SCH (21:05)
--- NOTE | 2022-09-24 06:06 | Electrocardiogram Report ---
Test Reason : Blood Pressure : / mmHG Vent. Rate : 060 BPM Atrial Rate : 060 BPM P-R Int : 158 ms QRS Dur : 082 ms QT Int : 446 ms P-R-T Axes : 056 019 033 degrees QTc Int : 446 ms Normal sinus rhythm Low voltage QRS Borderline ECG When compared with ECG of 23-JUL-2022 18:34, Vent. rate has decreased BY 33 BPM Confirmed by Donny Crisostomo ([id number]) on 09/24/2022 6:05:55 AM Referred By: Archie Padilla Confirmed By:Donny Crisostomo
[2022-09-24 06:57] LABS: Hematocrit (blood only) 38.1 % (37.0-47.0); Hemoglobin 12.8 g/dl (12.0-16.0); Mean Corpuscular Hemoglobin 30.3 pg (25.0-34.0); Mean Corpuscular Hgb Conc 33.6 g/dL (32.0-36.0); Mean Corpuscular Volume 90.1 fL (80.0-100.0); Mean Platelet Volume 9.7 fL (9.4-12.4); Platelet Count 145 K/uL (130-400); RDW Coefficient of Variation 13.3 % (11.5-14.5); RDW Standard Deviation 43.8 fL (36.4-46.3); Red Blood Count 4.23 M/uL (4.20-5.40); White Blood Count 13.02 K/ul (4.8-10.8)
[2022-09-24 07:17] LABS: BUN Creatinine Ratio 27.8 (10-20); Calcium 9.4 mg/dl (8.6-10.3); Creatinine Clr Calc Pharmacy 52.9 ml/min; Est GFR (Non-African American) 63.9 ml/min
[2022-09-24 07:45] LABS: Basophils # (auto) 0.05 K/uL (0-0.2); Basophils % (auto) 0.4 %; Eosinophils % (auto) 0.8 %; Immature Granulocytes # (auto) 0.02 K/uL (0.01-0.20); Immature Granulocytes % (auto) 0.2 %; Lymphocytes # (auto) 10.33 K/uL (1.2-3.4); Lymphocytes % (auto) 79.3 %; Monocytes # (auto) 0.41 K/uL (0.11-0.59); Monocytes % (auto) 3.1 %; Neutrophils # (auto) 2.11 K/uL (1.40-6.50); Neutrophils % (auto) 16.2 %; Smudge Cells Present
[2022-09-24] MEDS: amLODIPine BESYLATE 5 MG TAB PO SCH (09:16)
--- NOTE | 2022-09-24 14:56 | Hospitalist Progress Note ---
Date of Service September 24, 2022 Assessment & Plan (1) UTI (urinary tract infection): Plan: Acute urinary tract infection. Complicated with baseline immunosuppression and extended resistance patterns - moderate risk Leukocytosis of 13.86 on admit, today 13.02 Creatinine at baseline 0.9 UA with nitrites/blood on admission, UCx pending, but had outpatient culture and PCR testing, see scanned documents Patient growing >100k CFU E. coli, >100k CFU Enterococcus faecalis, 50-99k CFU Proteus Blood cultures pending - NGTD Patient placed on Avycaz/daptomycin in ER; transitioned to Zosyn/dapto after discussion 09/24 with Infectious Disease To continue abx through Tuesday for 5 day course (2) CLL (chronic lymphocytic leukemia): Plan: Chronic/stable Received treatment 2004 from outside hospital CLL relapse 2011 with B symptoms, treated with pentostatin/Cytoxan/rituximab 5 cycles last October 2011 Subsequently with hypogammaglobulinemia with periodic IVIG mostly in winter - WBC improved from prior on admit, 13 from 16 Last IgG level 06/2022 824 IgG levels low, IgM levels low. Received 200 mg/kg IVIG infusion while admitted after discussing with Oncology (3) Hypothyroidism: Plan: - Chronic/stable - Continue Levothyroxine 88mcg daily (4) Hypertension: Plan: - Chronic/stable - Continue Losartan (5) Angiomyolipoma of right kidney: Plan: - History of angiomyolipoma of right kidney, chronic - Renal US ordered - bladder wall thickening and stable cysts, follow up Urology as scheduled (6) Vasovagal syncope: Plan: - Patient with prodrome, not suspected to be cardiogenic in the past, no episodes since June - No chest pain, chest pressure, syncope or presyncope on admit, no episodes since admission - EKG NSR w/o acute changes Plan Anticipate discharge Tuesday. Not able to arrange q8h IV antibiotics at home nor at [facility] over the weekend. Anticipate discharge Tuesday if continues to clinically improve. Admission and Anticipated Discharge Date Admission Date: September 22, 2022 Subjective Patient without any acute events overnight. Reports resolution in her dysuria/urinary urgency since arrival to the ER. Denies any flank pain, nausea, vomiting, chest pain, shortness of breath. Review of Systems Review of Systems: All systems reviewed & are unremarkable except as noted in Subjective Physical Exam Constitutional: WD/WN, vitals as above Skin: no rashes, warm and dry Psychiatric: A+Ox3, euthymic affect Results & Data Results & Data Vital Signs (Past 12 Hours) Vital Signs Temp Pulse Resp BP Pulse Ox O2 Del Method 09/24/22 07:36 36.5 C 90 16 123/88 97 Room Air PG Care Time/CCT Total # of Minutes Spent Total Time Spent with Patient: Total time spent is greater than 50% in coordination of care (as documented) at patient's floor/unit and/or counseling patient: Coding Level of Care Code 16446 SUB INP/OBS CARE 3/50MIN Diagnoses UTI (urinary tract infection) N39.0 CLL (chronic lymphocytic leukemia) C91.90 Hypothyroidism E03.9 Hypertension I10 Angiomyolipoma of right kidney D30.01 Vasovagal syncope R55
[2022-09-24] MEDS: DAPTOmycin 475 MG in SYRINGE 0 ML IV SCH (16:11)
[2022-09-24] MEDS: PIPERACILLIN/TAZOBACTAM 4.5 GM in DEXTROSE 5% 100 ML IV SCH ×2 (16:11→22:07)
[2022-09-24] MEDS: ENOXAPARIN INJ 40 MG/0.4 ML SYR SQ SCH (18:32)
[2022-09-24] MEDS: LOSARTAN POTASSIUM 50 MG TAB PO SCH (20:52)
[2022-09-24] MEDS: LEVOTHYROXINE SODIUM 88 MCG TABLET PO SCH (20:52)
[2022-09-24] MEDS: SIMVASTATIN 20 MG TAB PO SCH (20:52)
[2022-09-25] MEDS: PIPERACILLIN/TAZOBACTAM 4.5 GM in DEXTROSE 5% 100 ML IV SCH ×2 (06:23→15:51)
--- NOTE | 2022-09-25 07:15 | Hospitalist Progress Note ---
Date of Service September 25, 2022 Assessment & Plan (1) UTI (urinary tract infection): Plan: Acute urinary tract infection, complicated with baseline immunosuppression and extended resistance patterns Leukocytosis of 13.86 on admit, today 12.5 Creatinine at baseline 0.9 UA with nitrites/blood on admission, UCx with more than 3 organisms (mixed probable skin jo), but had outpatient culture and PCR testing, see scanned documents Patient growing >100k CFU E. coli, >100k CFU Enterococcus faecalis, 50-99k CFU Proteus Blood cultures pending - NGTD Patient placed on Avycaz/daptomycin in ER; transitioned to Zosyn/dapto after discussion 09/24 with Infectious Disease To continue Abx through Tuesday for 5 day course (2) CLL (chronic lymphocytic leukemia): Plan: Chronic/stable Received treatment 2004 from outside hospital CLL relapse 2011 with B symptoms, treated with pentostatin/Cytoxan/rituximab 5 cycles last October 2011 Subsequently with hypogammaglobulinemia with periodic IVIG mostly in winter - WBC improved from prior on admit, 12.5 from 16 Last IgG level 06/2022 824 IgG levels low, IgM levels low. Received 200 mg/kg IVIG infusion while admitted after discussing with Oncology (3) Hypothyroidism: Plan: - Chronic/stable - Continue Levothyroxine 88mcg daily (4) Hypertension: Plan: - Chronic/stable - Continue Losartan (5) Angiomyolipoma of right kidney: Plan: - History of angiomyolipoma of right kidney, chronic - Renal US ordered - bladder wall thickening and stable cysts, follow up Urology as scheduled (6) Vasovagal syncope: Plan: - Patient with prodrome, not suspected to be cardiogenic in the past, no episodes since June - No chest pain, chest pressure, syncope or presyncope on admit, no episodes since admission - EKG NSR w/o acute changes Plan Not able to arrange q8h IV antibiotics at home nor at [facility] over the weekend. Anticipate discharge Tuesday if continues to clinically improve. Admission and Anticipated Discharge Date Admission Date: September 22, 2022 Subjective Patient without any acute events overnight. Does not endorse shortness of breath, chest pain, fevers or chills, flank pain, dysuria, urinary urgency/frequency. Review of Systems Review of Systems: All systems reviewed & are unremarkable except as noted in Subjective Physical Exam Constitutional: WD/WN, vitals as above Respiratory: normal respiratory effort, lungs clear to auscultation Cardiovascular: RRR, no murmur, no edema Skin: no rashes, warm and dry Psychiatric: A+Ox3, euthymic affect Results & Data Results & Data Vital Signs (Past 12 Hours) Vital Signs Temp Pulse Resp BP BP Pulse Ox O2 Del Method 09/25/22 06:30 36.5 C 72 16 128/82 96 Room Air 09/24/22 22:00 Room Air 09/24/22 22:17 36.7 C 80 18 137/80 95 Room Air PG Care Time/CCT Total # of Minutes Spent Total Time Spent with Patient: Total time spent is greater than 50% in coordination of care (as documented) at patient's floor/unit and/or counseling patient: Coding Level of Care Code 06067 SUB INP/OBS CARE 2/35MIN Diagnoses UTI (urinary tract infection) N39.0 CLL (chronic lymphocytic leukemia) C91.90 Hypothyroidism E03.9 Hypertension I10 Angiomyolipoma of right kidney D30.01 Vasovagal syncope R55
[2022-09-25 07:41] LABS: Hematocrit (blood only) 37.2 % (37.0-47.0); Hemoglobin 12.5 g/dl (12.0-16.0); Mean Corpuscular Hemoglobin 30.6 pg (25.0-34.0); Mean Corpuscular Hgb Conc 33.6 g/dL (32.0-36.0); Mean Corpuscular Volume 91.2 fL (80.0-100.0); Mean Platelet Volume 9.6 fL (9.4-12.4); Nucleated RBC # (auto) 0.02 K/uL (0-0.12); Nucleated RBC % (auto) 0.2 %; Platelet Count 147 K/uL (130-400); RDW Coefficient of Variation 13.4 % (11.5-14.5); Red Blood Count 4.08 M/uL (4.20-5.40); White Blood Count 12.57 K/ul (4.8-10.8)
[2022-09-25 07:53] LABS: BUN Creatinine Ratio 22.2 (10-20); Calcium 9.1 mg/dl (8.6-10.3); Creatinine Clr Calc Pharmacy 52.9 ml/min; Est GFR (Non-African American) 63.9 ml/min; Potassium 3.9 mmol/L (3.5-5.1)
[2022-09-25 08:49] LABS: Basophils # (auto) 0.06 K/uL (0-0.2); Basophils % (auto) 0.5 %; Eosinophils # (auto) 0.21 K/uL (0-0.50); Eosinophils % (auto) 1.7 %; Immature Granulocytes # (auto) 0.01 K/uL (0.01-0.20); Immature Granulocytes % (auto) 0.1 %; Lymphocytes # (auto) 9.49 K/uL (1.2-3.4); Lymphocytes % (auto) 75.5 %; Monocytes # (auto) 1.21 K/uL (0.11-0.59); Monocytes % (auto) 9.6 %; Neutrophils # (auto) 1.59 K/uL (1.40-6.50); Neutrophils % (auto) 12.6 %; Smudge Cells Present
[2022-09-25] MEDS: amLODIPine BESYLATE 5 MG TAB PO SCH (09:57)
[2022-09-25] MEDS: DAPTOmycin 475 MG in SYRINGE 0 ML IV SCH (15:26)
[2022-09-25] MEDS: ENOXAPARIN INJ 40 MG/0.4 ML SYR SQ SCH (18:20)
[2022-09-25] MEDS: SIMVASTATIN 20 MG TAB PO SCH (20:30)
[2022-09-25] MEDS: LOSARTAN POTASSIUM 50 MG TAB PO SCH (20:30)
[2022-09-25] MEDS: LEVOTHYROXINE SODIUM 88 MCG TABLET PO SCH (20:31)
[2022-09-26] MEDS: PIPERACILLIN/TAZOBACTAM 4.5 GM in DEXTROSE 5% 100 ML IV SCH ×3 (00:12→13:06)
[2022-09-26 08:04] LABS: Hematocrit (blood only) 35.9 % (37.0-47.0); Mean Corpuscular Hemoglobin 30.3 pg (25.0-34.0); Mean Corpuscular Hgb Conc 33.4 g/dL (32.0-36.0); Mean Corpuscular Volume 90.7 fL (80.0-100.0); Mean Platelet Volume 9.9 fL (9.4-12.4); Nucleated RBC # (auto) 0.03 K/uL (0-0.12); Nucleated RBC % (auto) 0.2 %; Platelet Count 159 K/uL (130-400); RDW Coefficient of Variation 13.4 % (11.5-14.5); RDW Standard Deviation 44.9 fL (36.4-46.3); Red Blood Count 3.96 M/uL (4.20-5.40); White Blood Count 15.06 K/ul (4.8-10.8)
--- NOTE | 2022-09-26 08:23 | Discharge Summary ---
Discharge Summary Date of Service September 26, 2022 Notes For Next Care Provider Completed total of 5 days of IV antibiotics for complicated UTI 6/7 labs with IgM less than 20, IgG 545.9, received IVIG dose while admitted, recommend follow-up with Oncology in 1 month (does not have a care provider at this time, previously followed with Dr. Lopez and with Gracie Herbert) Renal US showed stable renal cysts, follow-up with Urology Admission Exam Per Admitting Provider General: A&Ox3. NAD. Cooperative. HEENT: Atraumatic, normocephalic. Pulm: CTAB A&P. -wheezes, -rales, -rhonchi. Symmetrical chest rise. No increased work of breathing. No respiratory distress. Cardiac: RRR, -mrg. Radial pulses intact and symmetrical. Abdominal: Nontender, nondistended, soft. BS present. NO CVA TTP at time of exam Ext; Warm, dry Principal Dx & Hospital Course #1 = Principal Diagnosis (1) UTI (urinary tract infection): Acute urinary tract infection, complicated with baseline immunosuppression and extended resistance patterns Leukocytosis of 13.86 on admit UA with nitrites/blood on admission, UCx with more than 3 organisms (mixed p robable skin jo), but had outpatient culture and PCR testing, see scanned documents Patient with >100k CFU E. coli, >100k CFU Enterococcus faecalis, 50-99k CFU Proteus Blood cultures NGTD Patient placed on Avycaz/daptomycin in ER; transitioned to Zosyn/dapto, completed 5 day course, Infectious Disease involved this hospitalization Patient with long list of medication allergies/intolerances; advised follow up with Director Of Digital Marketing to determine which antibiotics are clinically safe at this time Amoxicillin removed from allergy list as patient tolerated piperacillin/tazobactam this admission without reaction (2) CLL (chronic lymphocytic leukemia): Chronic/stable Received treatment 2004 from outside hospital CLL relapse 2011 with B symptoms, treated with pentostatin/Cytoxan/rituximab 5 cycles last October 2011 Subsequently with hypogammaglobulinemia with periodic IVIG mostly in winter IgG levels low, IgM levels low. Received 200 mg/kg IVIG infusion while admitted after discussing with Oncology (3) Hypothyroidism: - Continue Levothyroxine 88mcg daily (4) Hypertension: - Continue Losartan (5) Angiomyolipoma of right kidney: - History of angiomyolipoma of right kidney, chronic - Renal US ordered - bladder wall thickening and stable cysts, follow up Urology as scheduled (6) Vasovagal syncope: - Patient with prodrome, not suspected to be cardiogenic in the past, no episodes since June - No chest pain, chest pressure, syncope or presyncope on admit, no episodes since admission - EKG NSR w/o acute changes Discharge Exam Constitutional WD/WN, vitals as above Respiratory normal respiratory effort, lungs clear to auscultation Cardiovascular RRR, no murmur, no edema Psychiatric A+Ox3, euthymic affect Updated Medication List Medication Instructions Recorded Confirmed Type amlodipine 5 mg tablet 5 mg PO DAILY #90 tabs 06/08/22 09/22/22 Rx simvastatin 20 mg tablet 20 mg PO QPM #90 tabs 06/08/22 09/22/22 Rx levothyroxine 88 mcg tablet 88 mcg PO DAILY #90 tabs 08/30/22 09/22/22 Rx losartan 100 mg tablet 100 mg PO DAILY #90 tabs 08/30/22 09/22/22 Rx cholecalciferol (vitamin D3) 50 1,000 unit PO DAILY #90 tabs 09/08/22 09/22/22 History mcg (2,000 unit) tablet esomeprazole magnesium 20 mg 10 mg PO DAILY PRN Acid Reflux 09/08/22 09/22/22 History capsule,delayed release (Nexium) hydrocortisone 2.5 % topical cream 2.5 applic topical DAILY PRN 09/22/22 09/22/22 History with perineal applicator Hemorrhoids (Procto-Med ) Hospital Stay Data Consultations 09/22/22 14:12 ED Decision to Admit Stat 09/24/22 08:53 Consult Infectious Diseases Routine Diagnostic Imagining Performed 09/22/22 14:19 US Renal Bladder [US renal/blad retro comp] Urgent Discharge Instructions Given to Patient (Per Discharging Provider) You were admitted for evaluation and management of a complicated UTI. You were given IVIG. You were also treated with IV antibiotics for the bacteria that you are growing in your urine. Your symptoms resolved, and you are felt to be safe for discharge home. You completed a total of 5 days of antibiotics. Please keep your follow-ups with your family doctor and with your urology provider Ana Alejandro. Please call the urology office if you have return of urinary tract symptoms. I have provided the information above for the oncology doctor, Dr. Correia. If you do not hear from their office by Tuesday, please call to schedule an appointment within a month of discharge. I have also provided on this paperwork the information for our slaughterer religious ritual, Dr. Jeong. I would recommend that you follow-up with him in order to evaluate your allergy list, as I suspect that you may not have as many allergies at this time in your life as you once did. During this hospitalization, the antibiotics that you received were daptomycin (also called Cubicin) and Zosyn (also called piperacillin/tazobactam). Total Time Total Time Spent Total Time Spent (In Minutes): 35 min Coding Level of Care Code 92815 INP/OBS DISCH >30 MIN Diagnoses UTI (urinary tract infection) N39.0 CLL (chronic lymphocytic leukemia) C91.90 Hypothyroidism E03.9 Hypertension I10 Angiomyolipoma of right kidney D30.01 Vasovagal syncope R55
[2022-09-26 09:05] LABS: Basophils # (auto) 0.08 K/uL (0-0.2); Basophils % (auto) 0.5 %; Echinocytes 1+; Eosinophils # (auto) 0.26 K/uL (0-0.50); Eosinophils % (auto) 1.7 %; Immature Granulocytes # (auto) 0.02 K/uL (0.01-0.20); Immature Granulocytes % (auto) 0.1 %; Lymphocytes # (auto) 11.67 K/uL (1.2-3.4); Lymphocytes % (auto) 77.5 %; Monocytes # (auto) 1.27 K/uL (0.11-0.59); Monocytes % (auto) 8.4 %; Neutrophils # (auto) 1.76 K/uL (1.40-6.50); Neutrophils % (auto) 11.8 %; Smudge Cells Present
[2022-09-26] MEDS: amLODIPine BESYLATE 5 MG TAB PO SCH (09:11)
[2022-09-26] MEDS: DAPTOmycin 475 MG in SYRINGE 0 ML IV SCH (13:07)
== END 2022-09-26 17:30 | disposition home or self-care (01) | DRG 690 ==
LOC: ED 11:11 → 2N 14:44 → SUATTDRO 14:44 → 2N 15:12 → 2W 18:42 → 3W 09-25 06:24

== ENCOUNTER 2024-11-06 13:46 | Inpatient (IN) ==
[2024-11-06] MEDS: PIPERACILLIN/TAZOBACTAM 4.5 GM/100 ML BAG IV ONE (14:25)
--- NOTE | 2024-11-06 14:33 | Emergency Department Note ---
ED Provider Note History of Present Illness Chief Complaint: Leg Injury/Pain Stated Complaint: SORE LEFT LEG Time Seen by Provider: 11/06/24 13:51 Source: patient Mode of arrival: ambulatory Limitations: no limitations Patient is a 74-year-old female who presents to the emergency department with complaints of a wound on her left lower extremity. Patient states that she was seen by Dr. Rea of dermatology and instructed to come to the emergency department for IV antibiotics. Home Medications Medication Instructions Recorded Confirmed Type cholecalciferol (vitamin D3) 50 1,000 unit PO HS #90 tabs 09/08/22 11/06/24 History mcg (2,000 unit) tablet esomeprazole magnesium 20 mg 10 mg PO UD PRN Acid Reflux 09/08/22 11/06/24 History capsule,delayed release (Nexium) amlodipine 5 mg tablet 5 mg PO HS 07/15/23 11/06/24 History simvastatin 20 mg tablet 20 mg PO HS 07/15/23 11/06/24 History losartan 100 mg tablet 100 mg PO HS #90 tabs 07/19/23 11/06/24 Rx levothyroxine 88 mcg tablet 88 mcg PO HS #90 tabs 09/06/23 11/06/24 Rx Allergies Allergy/AdvReac Type Severity Reaction Status Date / Time ciprofloxacin Allergy Severe SOB Verified 11/06/24 15:20 cefepime Allergy Intermediate red rash Verified 11/06/24 15:20 pseudoephedrine Allergy Intermediate HIVES Verified 11/06/24 15:20 clarithromycin Allergy Unknown "can't Verified 11/06/24 15:20 remember reaction" levofloxacin [From Levaquin] Allergy Unknown pt unsure Verified 11/06/24 15:20 Macrolide Antibiotics Allergy Unknown Unknown Verified 11/06/24 15:20 papaya Allergy Unknown UNKNOWN Verified 11/06/24 15:20 Quinolones Allergy Unknown pt not sure Verified 11/06/24 15:20 Sulfa (Sulfonamide Allergy Unknown pt doesn't Verified 11/06/24 15:20 Antibiotics) remember sulfamethoxazole Allergy Unknown Unknown Verified 11/06/24 15:20 RAUL Inhibitors AdvReac Intermediate Cough Verified 11/06/24 15:20 doxycycline AdvReac Intermediate Chest Pain Verified 11/06/24 15:20 famotidine AdvReac Intermediate Back Pain Verified 11/06/24 15:20 lisinopril AdvReac Intermediate Cough Verified 11/06/24 15:20 clavulanate potassium AdvReac Intermediate Dizziness Uncoded 11/06/24 15:20 Past Med/Surg History Problem List (Updated 11/07/24 @ 11:52 by TAN Gonzalez) Ecthyma gangrenosum (Acute) Pseudomonas infection (Acute) Gastroparesis (Chronic) Allergy to multiple antibiotics (Chronic) Immunocompromised (Chronic) Vitamin D deficiency (Chronic) Vitamin B 12 deficiency (Chronic) Acid reflux (Chronic) Angiomyolipoma of right kidney (Chronic) monitoring Chronic interstitial cystitis (Chronic) Hypercholesterolemia (Chronic) Hypertension (Chronic) Hypothyroidism (Chronic) Osteopenia (Chronic) Renal cyst, acquired (Chronic) CLL (chronic lymphocytic leukemia) (Chronic) dx in 1999, chemo in 2011, currently receives antibodies for her immunosuppression>f/u dr. lagunas, ph asif Medical History Genital herpes in women Sleep disturbance Microscopic hematuria Menopause Lumbar radiculopathy Actinic keratosis Colitis Nasal congestion Dizziness History of chemotherapy (2011) Hemorrhoids History of syncope hx dizziness...u/s Apr 2023..Dr. Hudson/ lymph node swelling in neck...z pack given/resolved. No further issues. hx passed out 07/2022/foot injury/heart testing was done/no findings. Surgical History Hx of colonoscopy [place] teeth extracted H/O: hysterectomy 2000 History of lumpectomy benign-"occurred from taking hormone pills following hysterectomy" Family History Brother Prostate cancer Lung cancer Esophageal cancer Mother Ischemic stroke Myocardial infarction Sister Brain cancer Denies family history of Ovarian cancer Breast cancer Colorectal cancer Social History Smoking Status: Never smoker Second Hand Exposure: Yes (hx growing up); Do You Dip or Chew Tobacco: No; Hx Alcohol Use: No Hx Substance Use: No Preferred Language: Fijian Communication Ability: Effective Livestock Breeder Required: No Beliefs That Will Affect Care: None marital status: Current Living Situation: Spouse current occupational status: retired Feels Safe at Home: Yes Childhood Exposure to Second-Hand Smoke: Yes Dental Care, Regularly: Yes Physical Activity Frequency: 3-4 Times per Week Seatbelt Use: always Sunscreen Use: Yes Assistive Devices: Walker Physical Exam Vital Signs Vital Signs - 24 hr 11/06/24 13:48 Temperature 36.7 C Temperature Source Temporal Artery Scan Pulse Rate 116 H Pulse Rhythm Regular Respiratory Rate 20 Respiratory Effort / Characteristics Non-Labored Spontaneous Respiratory Depth Normal Respiratory Pattern Regular Blood Pressure 131/78 Blood Pressure Mean 95 Blood Pressure Position Sitting Pulse Oximetry 94 Oxygen Delivery Method Room Air Sepsis Recent Fever Within 48 Hours No Sepsis New/Unexplained Change in Mental Status No Sepsis Action Taken by Nursing No Action Required Physical Exam: VITAL SIGNS - Vital signs and nursing notes were reviewed. GENERAL -74-year-old female appearing her stated age and in no noted discomfort throughout the exam. MUSCULOSKELETAL -left lower extremity presents with a small wound to her left carias. The wound bed is red with some purulent drainage noted. There is erythema and edema noted around the wound. No ecchymosis noted. Patient has full active range of motion of her left lower extremity and +5 strength noted. NEUROLOGIC/VASCULAR - Neurovascularly intact distally with +3/5 dorsalis pedis pulses palpated bilaterally. Intact sensation to light and sharp touch appreciated distally. Course Administered Medications Amlodipine Besylate (Amlodipine Besylate 5 Mg Tab) 5 mg PO HS ZAY Stop: 12/06/24 20:59 Last Admin: 11/06/24 20:01 Dose: 5 mg Documented By: MIGDALIA Enoxaparin Sodium (Enoxaparin Inj 40 Mg/0.4 Ml Syr) 40 mg SQ Q24H ZAY Stop: 12/06/24 16:59 Last Admin: 11/06/24 16:56 Dose: Not Given Documented By: JAYLIN Piperacillin Sod/Tazobactam Sod (Zosyn) 4.5 gm in 100 mls @ 25 mls/hr IV Q8H ZAY; Protocol Stop: 11/13/24 19:29 Last Admin: 11/07/24 10:29 Dose: 25 mls/hr Documented By: Infusion: 11/07/24 07:19 Dose: Infused Documented By: Admin: 11/07/24 03:27 Dose: 25 mls/hr Documented By: Infusion: 11/06/24 23:56 Dose: Infused Documented By: Admin: 11/06/24 19:54 Dose: 25 mls/hr Documented By: ATS Levothyroxine Sodium (Levothyroxine Sodium 88 Mcg Tablet) 88 mcg PO [facility] Stop: 12/06/24 20:59 Last Admin: 11/06/24 20:02 Dose: 88 mcg Documented By: ATS Losartan Potassium (Losartan Potassium 50 Mg Tab) 100 mg PO HS ZAY Stop: 12/06/24 20:59 Last Admin: 11/06/24 20:02 Dose: 100 mg Documented By: ATS Pantoprazole Sodium (Pantoprazole 40 Mg Tab) 40 mg PO DAILY PRN PRN Reason: Acid Reflux Stop: 12/06/24 16:46 Last Admin: 11/06/24 20:01 Dose: 40 mg Documented By: ATS Simvastatin (Simvastatin 20 Mg Tab) 20 mg PO [facility] Stop: 12/06/24 20:59 Last Admin: 11/06/24 20:02 Dose: 20 mg Documented By: ATS Vitamin D (Cholecalciferol 25 Mcg (1000 Units) Tab) 25 mcg PO [facility] Stop: 12/06/24 20:59 Last Admin: 11/06/24 20:02 Dose: 25 mcg Documented By: ATS Discontinued Medications Piperacillin Sod/Tazobactam Sod (Zosyn) 4.5 gm in 100 mls @ 200 mls/hr IV NOW ONE; Protocol Stop: 11/06/24 14:31 Last Infusion: 11/06/24 16:46 Dose: Infused Documented By: Admin: 11/06/24 14:25 Dose: 200 mls/hr Documented By: SHARON Ioversol (Optiray 320 100ml) 94 ml IV ONCE ONE Stop: 11/07/24 10:23 Last Admin: 11/07/24 10:22 Dose: 94 ml Documented By: FRANCESCA Medical Decision Making Differential Diagnosis Cellulitis, infection, Pseudomonas, sepsis, among others Medical Records Attestation: I reviewed the patient's medical records. Home Medications was personally reviewed by me Laboratory Data Attestation: I reviewed the patient's lab results. 11/07/24 06:59 11/07/24 06:59 Lab Results 11/06/24 Range/Units 14:03 WBC 16.91 H (4.8-10.8) K/ul RBC 4.20 (4.20-5.40) M/uL Hgb 12.3 (12.0-16.0) g/dl Hct 37.2 (37.0-47.0) % MCV 88.6 (80.0-100.0) fL MCH 29.3 (25.0-34.0) pg MCHC 33.1 (32.0-36.0) g/dL RDW Std Deviation 46.0 (36.4-46.3) fL RDW Coeff of Maria Isabel 14.4 (11.5-14.5) % Plt Count 160 (130-400) K/uL MPV 10.0 (9.4-12.4) fL Immature Gran % (Auto) 0.1 % Neut % (Auto) 17.0 % Lymph % (Auto) 74.8 % Kimble % (Auto) 7.1 % Eos % (Auto) 0.6 % Baso % (Auto) 0.4 % Neut # (Auto) 2.88 (1.40-6.50) K/uL Lymph # (Auto) 12.65 H (1.20-3.40) K/uL Kimble # (Auto) 1.20 H (0.11-0.59) K/uL Eos # (Auto) 0.10 (0.00-0.50) K/uL Baso # (Auto) 0.06 (0.00-0.20) K/uL Immature Gran # (Auto) 0.02 (0.01-0.20) K/uL Absolute Nucleated RBC 0.05 (0.00-0.12) K/uL Nucleated RBC % (auto) 0.3 % Sodium 139 (136-145) mmol/L Potassium 4.1 (3.5-5.1) mmol/L Chloride 106 (98-107) mmol/L Carbon Dioxide 25 (21-32) mmol/L Anion Gap 8 (3-11) BUN 32 H (6-23) mg/dl Creatinine 1.00 (0.6-1.2) mg/dl Est Cr Clr Drug Dosing 46.2 ml/min eGFR 59.12 BUN/Creatinine Ratio 32.0 H (10-20) Glucose 111 H (70-99(Fasting)) mg/dl Calcium 9.8 (8.6-10.3) mg/dl Total Bilirubin 0.3 (0.2-1.0) mg/dl AST 17 (13-39) U/L ALT 11 (7-52) U/L Alkaline Phosphatase 65 (34-104) U/L Total Protein 6.5 (6.0-8.3) gm/dl Albumin 4.1 (3.4-5.0) gm/dl Globulin 2.4 L (2.5-4.0) gm/dl Albumin/Globulin Ratio 1.7 (0.9-2) MDM Narrative Patient is a 74-year-old female who presents to the emergency department with complaints of a wound on her left lower extremity. Patient states that she was seen by Dr. Rea of dermatology and instructed to come to the emergency department for IV antibiotics. Patient was evaluated by myself and findings were noted in physical exam above. Patient was seen by Dr. Rea of [facility] dermatology and had a small "lump" removed from her left carias that was sent to pathology. The patient presented today with the pathology results noting sensitivity to Zosyn. The patient has a significant amount of antibiotic allergies but has had Zosyn in the past and tolerated it well. Dr. Rea referred her to the emergency department for IV administration of Zosyn and further management. I reach out to Dr. Rea's office and while she was gone for the day and unavailable to discuss this patient case, I did speak with her nurse who was able to convey from the documentation that Dr. Rea referred her to the emergency department for the IV Zosyn and our guidance for further management of this patient. I spoke with pharmacy and unfortunately there is not an antibiotic that she would be able to tolerate due to her allergies that would be able to be given once daily to set up any management through [facility]. I discussed with the patient that the most appropriate treatment for the bacteria that grew in her pathology report and with combination of her antibiotic allergies that admission to the hospital for IV administration of IV Zosyn would be the most appropriate plan. There was the option of trying fluoroquinolones in the outpatient setting but due to her age the risk was higher and she has an unsure allergy to fluoroquinolones. The patient verbalized understanding and was agreeable to the plan for inpatient treatment and management in the hospital. Patient was ordered IV placement and lab work at this time. Patient was also ordered an IV dose of Zosyn. The patient's white blood cell count resulted elevated at 16.91. The patient does however have a history of CLL and has a chronically elevated white blood cell count. The patient did not have any other significant electrolyte imbalances noted. The patient's BUN was elevated at 32 which also appears to be the patient's baseline. [facility] spoke to one of the physician assistants regarding this patient. I gave her a full report of the patient's chief complaint, current status and the results of her dermatology pathology report. She was agreeable to accept the patient under Dr. Loving's service. Please refer to [facility]'s documentation for further evaluation and management of this patient. Impression Pseudomonas infection Discharge Plan Visit Data Chief Complaint: Leg Injury/Pain Stated Complaint: SORE LEFT LEG ED Provider: Luiz Castorena ED Midlevel Provider: Jenn Forde Discharge Problem: Pseudomonas infection Patient Disposition: Admitted As Inpatient Condition: Fair Discharge Instructions Interventions: ED Discharge Assessment Last Done: 11/06/24 16:16 ED DC CONDITION Conditon at Discharge Condition at Discharge: Fair
[2024-11-06 14:40] LABS: Alanine Aminotransferase 11.0 U/L (7-52); Albumin Globulin Ratio 1.7 (0.9-2); Alkaline Phosphatase 65.0 U/L (34-104); Anion Gap 8.0 (3-11); Bilirubin,Total 0.3 mg/dl (0.2-1.0); Blood Urea Nitrogen 32.0 mg/dl (6-23); Calcium 9.8 mg/dl (8.6-10.3); Carbon Dioxide 25.0 mmol/L (21-32); Chloride 106.0 mmol/L (98-107); Creatinine Clr Calc Pharmacy 46.2 ml/min; Globulin 2.4 gm/dl (2.5-4.0); Glucose 111.0 mg/dl (70-99(Fasting)); Potassium 4.1 mmol/L (3.5-5.1); Sodium 139.0 mmol/L (136-145); Total Protein 6.5 gm/dl (6.0-8.3)
[2024-11-06 14:46] LABS: Hematocrit (blood only) 37.2 % (37.0-47.0); Hemoglobin 12.3 g/dl (12.0-16.0); Mean Corpuscular Hemoglobin 29.3 pg (25.0-34.0); Mean Corpuscular Volume 88.6 fL (80.0-100.0); Platelet Count 160 K/uL (130-400); RDW Standard Deviation 46.0 fL (36.4-46.3); Red Blood Count 4.20 M/uL (4.20-5.40); White Blood Count 16.91 K/ul (4.8-10.8)
[2024-11-06 15:09] LABS: Immature Granulocytes # (auto) 0.02 K/uL (0.01-0.20); Immature Granulocytes % (auto) 0.1 %
--- NOTE | 2024-11-06 15:23 | Emergency Department Note ---
ED Visit Note I was consulted by the Advanced Practice Provider. I personally made/approved the management plan and take responsibility for the patient management. I performed a substantive portion of the visit. This includes the aspects of: The patient does have a slight white count elevation although, she carries a history of CLL. She was mildly tachycardic here in the ED. She was not febrile. She has a cellulitis on exam and has grown a very resistant organism. She requires IV Zosyn. She is to be hospitalized. .
--- NOTE | 2024-11-06 16:29 | History & Physical Report ---
Date of Service November 06, 2024 Assessment & Plan (1) Pseudomonas infection: (2) CLL (chronic lymphocytic leukemia): (3) Immunocompromised: (4) Allergy to multiple antibiotics: Plan In summary this is a 74-year-old female who is being admitted for observation due to confirmed pseudomonal aeruginosa conization of subacute bilateral lower extremity wounds. 1: Regarding the patient's infection in the setting of CLL in remission with an immunocompromise state supported by immunoglobulin infusions, treatment options are limited based on the patient's numerous antibiotic allergies. Sensitivities were available for review from the patient's stranding machine operator order from [facility] which reveals catherine sensitivity. Based on this we will pursue treatment with Zosyn which was initially started in the emergency department. Blood cultures were not obtained prior to administration of antibiotics however the patient does not appear to be septic at this time. -Continue Zosyn, initiated 11/06 -Consult wound care Laboratory reassessment with CBC with manual differential and BMP Admission and Anticipated Discharge Date Admission Date: Admitted 11/06/2024; anticipated discharge within 24 to 48 hours History of Present Illness Chief Complaint: Lower extremity wounds with Pseudomonas aeruginosa culture Primary Care Provider: Tank Cueva PA-C Ms. Barrera is a 74-year-old female whose active medical conditions include chronic lymphocytic leukemia in sustained remission among other chronic medical conditions with a medical history of multiple actinic keratoses with suspected unspecified malignancy who presents to [facility] by referral of the stranding machine operator due to a left lower extremity wound culture yielding Pseudomonas aeruginosa growth. The patient was initially evaluated by the stranding machine operator on 10/31 for multiple lower extremity wounds; a culture was obtained from the left lower extremity which resulted in this bacterial growth approximately 4 days later. The patient was prescribed a topical gentamicin for initial treatment though there has been no improvement thus they were referred to this Medical Center for evaluation. The patient describes generalized right leg discomfort primarily felt as an achiness that occurs only with firm palpation; this is not affecting their ability to ambulate at home. They have had no recent falls nor injuries that precipitated these wounds. Other than gentamicin ointment they have had no recent antibiotic courses in the past 60 days. Allergies Allergy/AdvReac Type Severity Reaction Status Date / Time ciprofloxacin Allergy Severe SOB Verified 11/06/24 15:20 cefepime Allergy Intermediate red rash Verified 11/06/24 15:20 pseudoephedrine Allergy Intermediate HIVES Verified 11/06/24 15:20 clarithromycin Allergy Unknown "can't Verified 11/06/24 15:20 remember reaction" Iodinated Contrast Media Allergy Unknown pt doesn't Verified 11/06/24 15:20 remember levofloxacin [From Levaquin] Allergy Unknown pt unsure Verified 11/06/24 15:20 Macrolide Antibiotics Allergy Unknown Unknown Verified 11/06/24 15:20 papaya Allergy Unknown UNKNOWN Verified 11/06/24 15:20 Quinolones Allergy Unknown pt not sure Verified 11/06/24 15:20 Sulfa (Sulfonamide Allergy Unknown pt doesn't Verified 11/06/24 15:20 Antibiotics) remember sulfamethoxazole Allergy Unknown Unknown Verified 11/06/24 15:20 RAUL Inhibitors AdvReac Intermediate Cough Verified 11/06/24 15:20 doxycycline AdvReac Intermediate Chest Pain Verified 11/06/24 15:20 famotidine AdvReac Intermediate Back Pain Verified 11/06/24 15:20 lisinopril AdvReac Intermediate Cough Verified 11/06/24 15:20 clavulanate potassium AdvReac Intermediate Dizziness Uncoded 11/06/24 15:20 Home Medications Medication Instructions Recorded Confirmed Type cholecalciferol (vitamin D3) 50 1,000 unit PO HS #90 tabs 09/08/22 11/06/24 History mcg (2,000 unit) tablet esomeprazole magnesium 20 mg 10 mg PO UD PRN Acid Reflux 09/08/22 11/06/24 History capsule,delayed release (Nexium) amlodipine 5 mg tablet 5 mg PO HS 07/15/23 11/06/24 History simvastatin 20 mg tablet 20 mg PO HS 07/15/23 11/06/24 History losartan 100 mg tablet 100 mg PO HS #90 tabs 07/19/23 11/06/24 Rx levothyroxine 88 mcg tablet 88 mcg PO HS #90 tabs 09/06/23 11/06/24 Rx Past Med/Surg History Problem List (Updated 11/06/24 @ 16:33 by Aman Carreon DO) Pseudomonas infection Gastroparesis (Chronic) Allergy to multiple antibiotics (Chronic) Immunocompromised (Chronic) Vitamin D deficiency (Chronic) Vitamin B 12 deficiency (Chronic) Acid reflux (Chronic) Angiomyolipoma of right kidney (Chronic) monitoring Chronic interstitial cystitis (Chronic) Hypercholesterolemia (Chronic) Hypertension (Chronic) Hypothyroidism (Chronic) Osteopenia (Chronic) Renal cyst, acquired (Chronic) CLL (chronic lymphocytic leukemia) (Chronic) dx in 1999, chemo in 2011, currently receives antibodies for her immunosuppression>f/u dr. lagunas, ph asif Medical History (Updated 11/06/24 @ 16:33 by Aman Carreon DO) Genital herpes in women Sleep disturbance Microscopic hematuria Menopause Lumbar radiculopathy Actinic keratosis Colitis Nasal congestion Dizziness History of chemotherapy (2011) Hemorrhoids History of syncope hx dizziness...u/s Apr 2023..Dr. Hudson/ lymph node swelling in neck...z pack given/resolved. No further issues. hx passed out 07/2022/foot injury/heart testing was done/no findings. Surgical History Hx of colonoscopy [place]app[place] teeth extracted H/O: hysterectomy 2000 History of lumpectomy benign-"occurred from taking hormone pills following hysterectomy" Family History Brother Prostate cancer Lung cancer Esophageal cancer Mother Ischemic stroke Myocardial infarction Sister Brain cancer Denies family history of Ovarian cancer Breast cancer Colorectal cancer Social History Smoking Status: Never smoker Second Hand Exposure: Yes (hx growing up); Do You Dip or Chew Tobacco: No; Hx Alcohol Use: No Hx Substance Use: No Preferred Language: Luxembourgish Communication Ability: Effective Song Writer Required: No Beliefs That Will Affect Care: None marital status: Current Living Situation: Spouse current occupational status: retired Feels Safe at Home: Yes Childhood Exposure to Second-Hand Smoke: Yes Dental Care, Regularly: Yes Physical Activity Frequency: 3-4 Times per Week Seatbelt Use: always Sunscreen Use: Yes Assistive Devices: Glasses Review of Systems Review of Systems: Constitutional: Denies recent weight change, fever, chills, night sweats, fatigue, malaise Cardiovascular: Denies chest pain, shortness of breath, dyspnea on exertion, orthopnea, platypnea, lower extremity edema, claudication, palpitations, cough Gastrointestinal: Denies nausea, vomiting, diarrhea, constipation, abdominal discomfort, dysphagia, odynophagia, hematochezia, melena Musculoskeletal: Endorses lower extremity discomfort as described in the HPI above; denies focal arthralgia, myalgia, joint swelling Skin: Endorses skin lesions as described initially in HPI and further detailed in physical exam below; no additional skin concerns Neuro: Denies focal weakness, loss of sensation, paresthesia, syncope, headache, ambulatory dysfunction Physical Exam Physical Exam: General: Adult female in no acute distress Vital signs: Reviewed HEENT: Normocephalic atraumatic; pupils equally reactive to light, extraocular motions intact; moist mucous membranes with fair dentition Neck: No palpable lymphadenopathy Cardiovascular: Regular rate and rhythm with no murmurs, rubs, or gallops; S1 and S2 normal; bilateral radial and posterior tibial pulses 2+; trace bilateral lower extremity edema distal of the mid leg Gastrointestinal: Soft, nondistended; no palpable masses or organomegaly Skin: On the medial aspect of the left leg there is a 1.5 cm diameter raised erythematous lesion with central scabbing, tender to palpation with radiating heat; there is a lesion on the medial aspect of the right leg which is 1 cm in diameter with similar findings; there is no expressible discharge or purulence from either of these wounds; proximal to the right lower extremity wound there is a 2 cm area of faintly pink papules that are more tender to palpation than the remaining affected extremity though without any associated scabbing nor radiating heat; there is no popliteal nor inguinal lymphadenopathy of the affected extremity; nor is there evidence of lymphangitis Musculoskeletal: There is no pain with passive range of motion of the knees bilaterally nor ankles Neurologic: The bilateral lower extremities have normal muscle strength and tone without focal deficit; no notable lower extremity paresthesias or numbness; ambulates with the assistance of a walker which has been used for an extended period Results & Data Results & Data Vital Signs (Past 12 Hours) Vital Signs Temp Pulse Resp BP Pulse Ox O2 Del Method 11/06/24 13:48 36.7 C 116 H 20 131/78 94 Room Air Laboratory Results 11/06/24 14:03 WBC 16.91 H RBC 4.20 Hgb 12.3 Hct 37.2 MCV 88.6 MCH 29.3 MCHC 33.1 RDW Std Deviation 46.0 RDW Coeff of Maria Isabel 14.4 Plt Count 160 MPV 10.0 Immature Gran % (Auto) 0.1 Neut % (Auto) 17.0 Lymph % (Auto) 74.8 Murray % (Auto) 7.1 Eos % (Auto) 0.6 Baso % (Auto) 0.4 Neut # (Auto) 2.88 Lymph # (Auto) 12.65 H Murray # (Auto) 1.20 H Eos # (Auto) 0.10 Baso # (Auto) 0.06 Immature Gran # (Auto) 0.02 Absolute Nucleated RBC 0.05 Nucleated RBC % (auto) 0.3 Sodium 139 Potassium 4.1 Chloride 106 Carbon Dioxide 25 Anion Gap 8 BUN 32 H Creatinine 1.00 Est Cr Clr Drug Dosing 46.2 eGFR 59.12 BUN/Creatinine Ratio 32.0 H Glucose 111 H Calcium 9.8 Total Bilirubin 0.3 AST 17 ALT 11 Alkaline Phosphatase 65 Total Protein 6.5 Albumin 4.1 Globulin 2.4 L Albumin/Globulin Ratio 1.7 Medications Administered Home Medications Medication Instructions Recorded Confirmed Last Taken cholecalciferol (vitamin D3) 50 1,000 unit PO HS #90 tabs 09/08/22 11/06/24 11/05/24 mcg (2,000 unit) tablet esomeprazole magnesium 20 mg 10 mg PO UD PRN Acid Reflux 09/08/22 11/06/24 09/28/23 capsule,delayed release (Nexium) amlodipine 5 mg tablet 5 mg PO HS 07/15/23 11/06/24 11/05/24 simvastatin 20 mg tablet 20 mg PO HS 07/15/23 11/06/24 11/05/24 losartan 100 mg tablet 100 mg PO HS #90 tabs 07/19/23 11/06/24 11/05/24 levothyroxine 88 mcg tablet 88 mcg PO HS #90 tabs 09/06/23 11/06/24 11/05/24 -Patient was administered Zosyn in the emergency department; observed at the time of my physical exam Code Status & VTE Plan Code Status Full code VTE Prophylaxis Plan VTE Prophylaxis will be ordered: Yes PG Care Time/CCT Total # of Minutes Spent Total Time Spent with Patient: Total time spent is greater than 50% in coordination of care (as documented) at patient's floor/unit and/or counseling patient: Coding [place] [address] INT INP/OBS CARE 3/75MIN Patient Type Established History Comprehensive Exam Comprehensive Medical Decision Making High Complexity Diagnoses Pseudomonas infection A49.8 CLL (chronic lymphocytic leukemia) C91.90 Immunocompromised D84.9 Allergy to multiple antibiotics Z88.1
[2024-11-06] MEDS ORDERED: MELATONIN 3 MG TAB PO PRN (16:43)
[2024-11-06] MEDS: ENOXAPARIN INJ 40 MG/0.4 ML SYR SQ SCH (16:56)
[2024-11-06] MEDS: PIPERACILLIN/TAZOBACTAM 4.5 GM/100 ML BAG IV SCH (19:54)
[2024-11-06] MEDS: LEVOTHYROXINE SODIUM 88 MCG TABLET PO SCH (20:02)
[2024-11-06] MEDS: LOSARTAN POTASSIUM 50 MG TAB PO SCH (20:02)
[2024-11-06] MEDS: SIMVASTATIN 20 MG TAB PO SCH (20:02)
[2024-11-06] MEDS: CHOLECALCIFEROL 25 MCG (1000 UNITS) TAB PO SCH (20:02)
[2024-11-07 07:35] LABS: Hematocrit (blood only) 37.0 % (37.0-47.0); Hemoglobin 12.2 g/dl (12.0-16.0); Mean Corpuscular Hemoglobin 29.9 pg (25.0-34.0); Mean Corpuscular Volume 90.7 fL (80.0-100.0); Platelet Count 133 K/uL (130-400); RDW Standard Deviation 47.8 fL (36.4-46.3); Red Blood Count 4.08 M/uL (4.20-5.40); White Blood Count 13.60 K/ul (4.8-10.8)
[2024-11-07 07:55] LABS: Anion Gap 6.0 (3-11); Blood Urea Nitrogen 24.0 mg/dl (6-23); Calcium 8.9 mg/dl (8.6-10.3); Carbon Dioxide 28.0 mmol/L (21-32); Chloride 107.0 mmol/L (98-107); Creatinine Clr Calc Pharmacy 43.6 ml/min; Glucose 106.0 mg/dl (70-99(Fasting)); Potassium 3.9 mmol/L (3.5-5.1); Sodium 141.0 mmol/L (136-145)
[2024-11-07 08:35] LABS: Immature Granulocytes # (auto) 0.02 K/uL (0.01-0.20); Immature Granulocytes % (auto) 0.1 %
--- NOTE | 2024-11-07 09:27 | Hospitalist Progress Note ---
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 #Ecthyma gangrenosum Zosyn will be continued; anticipate an antibiotic course of 7-10 days pending imaging ordered below; no evidence of systemic infection at this time, blood cultures were not obtained prior to initiation of therapy in the ED -Continue Zosyn, initiated 11/06 -Consult wound care -Pending CT right leg with and without contrast Admission and Anticipated Discharge Date Admission Date: November 06, 2024; anticipated discharge Subjective Ms. Barrera is a 74-year-old female whose active medical conditions include chronic lymphocytic leukemia in sustained remission among other chronic medical conditions with a medical history of multiple actinic keratoses with suspected unspecified malignancy who presented to [facility] by referral of their art sales consultant on 11/06. A left lower extremity wound was biopsied by this provider and subsequently yielded Pseudomonas aeruginosa growth, at that time they were recommended by their art sales consultant to present to an emergency department for evaluation. No acute overnight events; the patient feels well this morning with no new lesions nor specific improvement with regard to their wounds though this was not expected to be the case. Review of Systems Review of Systems: Constitutional: denies fevers, chills, malaise, fatigue Cardiovascular: denies angina, palpitations, syncope Pulmonary: denies cough Gastrointestinal: denies nausea, emesis, abdominal distension, constipation, diarrhea Genitourinary: denies dysuria, hematuria, urinary incontinence Neurologic: denies focal weakness, paresthesias or numbness Musculoskeletal: denies arthralgias, progressive weaknesss, recent falls Integumentary: denies new or developing rashes or lesions Physical Exam Physical Exam: General: Adult female in no acute distress Vital signs: Reviewed HEENT: Normocephalic atraumatic; pupils equally reactive to light, extraocular motions intact; moist mucous membranes with fair dentition Neck: No palpable lymphadenopathy Cardiovascular: Regular rate and rhythm with no murmurs, rubs, or gallops; S1 and S2 normal; bilateral radial and posterior tibial pulses 2+; trace bilateral lower extremity edema distal of the mid leg Gastrointestinal: Soft, nondistended; no palpable masses or organomegaly Skin: On the medial aspect of the left leg there is a 1.5 cm diameter raised erythematous lesion with central scabbing, tender to palpation with radiating heat; there is a lesion on the medial aspect of the right leg which is 1 cm in diameter with similar findings; there is no expressible discharge or purulence from either of these wounds; proximal to the right lower extremity wound there is a 2 cm area of faintly pink papules that are more tender to palpation than the remaining affected extremity though without any associated scabbing nor radiating heat; there is no popliteal nor inguinal lymphadenopathy of the affected extremity; nor is there evidence of lymphangitis Musculoskeletal: There is no pain with passive range of motion of the knees bilaterally nor ankles Neurologic: The bilateral lower extremities have normal muscle strength and tone without focal deficit; no notable lower extremity paresthesias or numbness; ambulates with the assistance of a walker which has been used for an extended period Results & Data Results & Data Vital Signs (Past 12 Hours) Vital Signs Temp Pulse Resp BP Pulse Ox O2 Del Method 11/07/24 07:03 36.3 C L 61 16 121/74 96 Room Air Laboratory Results 11/07/24 11/06/24 06:59 14:03 WBC 13.60 H 16.91 H RBC 4.08 L 4.20 Hgb 12.2 12.3 Hct 37.0 37.2 MCV 90.7 88.6 MCH 29.9 29.3 MCHC 33.0 33.1 RDW Std Deviation 47.8 H 46.0 RDW Coeff of Maria Isabel 14.5 14.4 Plt Count 133 160 MPV 10.0 10.0 Immature Gran % (Auto) 0.1 0.1 Neut % (Auto) 11.8 17.0 Lymph % (Auto) 83.5 74.8 Stanislaus % (Auto) 2.9 7.1 Eos % (Auto) 1.4 0.6 Baso % (Auto) 0.3 0.4 Neut # (Auto) 1.60 2.88 Lymph # (Auto) 11.35 H 12.65 H Stanislaus # (Auto) 0.40 1.20 H Eos # (Auto) 0.19 0.10 Baso # (Auto) 0.04 0.06 Immature Gran # (Auto) 0.02 0.02 Absolute Nucleated RBC 0.02 0.05 Nucleated RBC % (auto) 0.1 0.3 Echinocytes 2+ Sodium 141 139 Potassium 3.9 4.1 Chloride 107 106 Carbon Dioxide 28 25 Anion Gap 6 8 BUN 24 H 32 H Creatinine 1.16 1.00 Est Cr Clr Drug Dosing 43.6 46.2 eGFR 49.47 59.12 BUN/Creatinine Ratio 20.7 H 32.0 H Glucose 106 H 111 H Calcium 8.9 9.8 Phosphorus 3.5 Total Bilirubin 0.3 AST 17 ALT 11 Alkaline Phosphatase 65 Total Protein 6.5 Albumin 4.0 4.1 Globulin 2.4 L Albumin/Globulin Ratio 1.7 Medications Administered Home Medications Medication Instructions Recorded Confirmed Last Taken cholecalciferol (vitamin D3) 50 1,000 unit PO HS #90 tabs 09/08/22 11/06/24 11/05/24 mcg (2,000 unit) tablet esomeprazole magnesium 20 mg 10 mg PO UD PRN Acid Reflux 09/08/22 11/06/24 09/28/23 capsule,delayed release (Nexium) amlodipine 5 mg tablet 5 mg PO HS 07/15/23 11/06/24 11/05/24 simvastatin 20 mg tablet 20 mg PO HS 07/15/23 11/06/24 11/05/24 losartan 100 mg tablet 100 mg PO HS #90 tabs 07/19/23 11/06/24 11/05/24 levothyroxine 88 mcg tablet 88 mcg PO HS #90 tabs 09/06/23 11/06/24 11/05/24 Active Medications Generic Name Dose Route Start Last Admin Trade Name Jay PRN Reason Stop Dose Admin Amlodipine Besylate 5 mg 11/06/24 21:00 11/06/24 20:01 Amlodipine Besylate 5 Mg Tab PO 12/06/24 20:59 5 mg HS ZAY Administration Enoxaparin Sodium 40 mg 11/06/24 17:00 11/06/24 16:56 Enoxaparin Inj 40 Mg/0.4 Ml Syr SQ 12/06/24 16:59 Not Given Q24H ZAY Piperacillin Sod/Tazobactam Sod 4.5 gm in 100 mls @ 25 mls/hr 11/06/24 19:30 11/07/24 07:19 Zosyn IV 11/13/24 19:29 Infused Q8H ZAY Infusion Protocol Levothyroxine Sodium 88 mcg 11/06/24 21:00 11/06/24 20:02 Levothyroxine Sodium 88 Mcg Tablet PO 12/06/24 20:59 88 mcg HS ZAY Administration Losartan Potassium 100 mg 11/06/24 21:00 11/06/24 20:02 Losartan Potassium 50 Mg Tab PO 12/06/24 20:59 100 mg HS ZAY Administration Pantoprazole Sodium 40 mg 11/06/24 16:47 11/06/24 20:01 Pantoprazole 40 Mg Tab PO 12/06/24 16:46 40 mg DAILY PRN Administration Acid Reflux Simvastatin 20 mg 11/06/24 21:00 11/06/24 20:02 Simvastatin 20 Mg Tab PO 12/06/24 20:59 20 mg HS ZAY Administration Vitamin D 25 mcg 11/06/24 21:00 11/06/24 20:02 Cholecalciferol 25 Mcg (1000 Units) Tab PO 12/06/24 20:59 25 mcg HS ZAY Administration PG Care Time/CCT Total # of Minutes Spent Total Time Spent with Patient: Total time spent is greater than 50% in coordination of care (as documented) at patient's floor/unit and/or counseling patient: Coding Level of Care Code 14888 SUB INP/OBS CARE 2/35MIN Diagnoses Ecthyma gangrenosum L08.0 CLL (chronic lymphocytic leukemia) C91.90 Immunocompromised D84.9 Allergy to multiple antibiotics Z88.1
[2024-11-07] MEDS: OPTIRAY 320 100ml IV ONE (10:22)
--- NOTE | 2024-11-07 11:12 | CT Scan Report ---
CT tib/fib RT w con HISTORY: 74 years-old Female Ecthyma gangrenosum; assess for osteo soft tissue infection of the righ t lower leg. Clinical concern for osteomyelitis COMPARISON: None TECHNIQUE: Multiple axial CT images of the right tibia and fibula were obtained with IV contrast. A d ose lowering technique was used consistent with the principals of CELIA. FINDINGS: Partially imaged subcutaneous edema. Heel pad. There is no significant soft tissue edema of the lower leg. No fluid collections, abnormal enhancement or suspicious mass lesions. There is moderate atroph y noted involving the medial head gastrocnemius. Moderate distal Achilles tendinosis without acute te ar identified by CT. No acute fracture, dislocation or osseous erosion. No suspicious bone lesions. Ill-defined subcentime ter ossifications noted along the posterior aspect of the distal tib-fib syndesmosis, likely chronic. Medial compartment chondrocalcinosis with arthritis of the knee. IMPRESSION: 1. No acute inflammatory changes or fluid collections of the right lower leg. 2. No CT evidence of acute osteomyelitis. 3. Moderate distal Achilles tendinosis. ACT 112: Negative or not required by law. The above report was generated using voice recognition software. It may contain grammatical, syntax o r spelling errors. Electronically signed by: José Miguel Buchanan M.D. 11/07/2024 11:11 AM
[2024-11-07 14:39] VITALS: TEMP 97.5
[2024-11-07] MEDS ORDERED: ACETAMINOPHEN 325 MG TAB PO PRN (18:36)
[2024-11-07] MEDS: LACTATED RINGER'S 1,000 ML IV SCH (19:24)
[2024-11-08 07:42] VITALS: BP 99/63; PULSE 82; RESP 18; O2SAT 92
--- NOTE | 2024-11-08 09:47 | Hospitalist Progress Note ---
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 The patient did develop a centripetal erythematous rash on the afternoon of 11/07, this is not consistent with an IgE mediated reaction based on her associated symptomatology and the temporality with respect to medications administered throughout the day. Most likely this is a adverse effect of intravenous contrast that should resolve spontaneously. #Ecthyma gangrenosum Zosyn will be continued through 11/15 for total 10-day course; no evidence of systemic infection at this time, blood cultures were not obtained prior to initiation of therapy in the ED. CT of the lower extremity did not reveal any significant pathology or extending of infection to the subdermal tissues -Continue Zosyn, initiated 11/06 -Consult wound care Admission and Anticipated Discharge Date Admission Date: November 07, 2024; Anticipate discharge in the next 24 to 48 hours pending coordination of care with home antibiotic administration Subjective Ms. Barrera is a 74-year-old female whose active medical conditions include chronic lymphocytic leukemia in sustained remission among other chronic medical conditions with a medical history of multiple actinic keratoses with suspected unspecified malignancy who presented to [facility] by referral of their branch retail executive on 11/06. A left lower extremity wound was biopsied by this provider and subsequently yielded Pseudomonas aeruginosa growth, at that time they were recommended by their branch retail executive to present to an emergency department for evaluation. In the late afternoon on 11/07 the patient developed a centripetal erythematous rash that was not pruritic nor painful. She described a similar circumstance with previous radiology study requiring contrast though she has had episodes of contrast administration with there was no subsequent rash. She denied at that time any shortness of breath, pruritus, discomfort, lightheadedness, palpitations, or chest pain. This improved without medical intervention; the patient feels well this morning with no new lesions nor specific improvement with regard to their wounds though this was not expected to be the case. Review of Systems Review of Systems: Constitutional: denies fevers, chills, malaise, fatigue Cardiovascular: denies angina, palpitations, syncope Pulmonary: denies cough Gastrointestinal: denies nausea, emesis, abdominal distension, constipation, diarrhea Genitourinary: denies dysuria, hematuria, urinary incontinence Neurologic: denies focal weakness, paresthesias or numbness Musculoskeletal: denies arthralgias, progressive weaknesss, recent falls Integumentary: Rash from the afternoon of 11/07 has improved, lower extremity wounds present at the time of admission have not had significant change other th an diminished erythematous border Physical Exam Physical Exam: General: Adult female in no acute distress Vital signs: Reviewed HEENT: Normocephalic atraumatic; pupils equally reactive to light, extraocular motions intact; moist mucous membranes with fair dentition Neck: No palpable lymphadenopathy Cardiovascular: Regular rate and rhythm with no murmurs, rubs, or gallops; S1 and S2 normal; bilateral radial and posterior tibial pulses 2+; trace bilateral lower extremity edema distal of the mid leg Gastrointestinal: Soft, nondistended; no palpable masses or organomegaly Skin: On the medial aspect of the left leg there is a 1.5 cm diameter raised erythematous lesion with central scabbing, tender to palpation No longer radiating heat; there is a lesion on the medial aspect of the right leg which is 1 cm in diameter with similar findings, Also no longer radiating heat; there is no expressible discharge or purulence from either of these wounds; proximal to the right lower extremity wound there is a 2 cm area of faintly pink papules that are more tender to palpation than the remaining affected extremity though without any associated scabbing nor radiating heat; there is no popliteal nor inguinal lymphadenopathy of the affected extremity; nor is there evidence of lymphangitis Musculoskeletal: There is no pain with passive range of motion of the knees bilaterally nor ankles Neurologic: The bilateral lower extremities have normal muscle strength and tone without focal deficit; no notable lower extremity paresthesias or numbness; ambulates with the assistance of a walker which has been used for an extended period Results & Data Results & Data Vital Signs (Past 12 Hours) Vital Signs Temp Pulse Resp BP Pulse Ox O2 Del Method 11/08/24 07:41 36.4 C L 82 18 99/63 L 92 Room Air Diagnostic Findings Lower Extremity CT 11/07/24 09:29 CT tib/fib RT w con HISTORY: 74 years-old Female Ecthyma gangrenosum; assess for osteo soft tissue infection of the right lower leg. Clinical concern for osteomyelitis COMPARISON: None TECHNIQUE: Multiple axial CT images of the right tibia and fibula were obtained with IV contrast. A dose lowering technique was used consistent with the principals of CELIA. FINDINGS: Partially imaged subcutaneous edema. Heel pad. There is no significant soft tissue edema of the lower leg. No fluid collections, abnormal enhancement or suspicious mass lesions. There is moderate atrophy noted involving the medial head gastrocnemius. Moderate distal Achilles tendinosis without acute tear identified by CT. No acute fracture, dislocation or osseous erosion. No suspicious bone lesions. Ill-defined subcentimeter ossifications noted along the posterior aspect of the distal tib-fib syndesmosis, likely chronic. Medial compartment chondrocalcinosis with arthritis of the knee. IMPRESSION: 1. No acute inflammatory changes or fluid collections of the right lower leg. 2. No CT evidence of acute osteomyelitis. 3. Moderate distal Achilles tendinosis. ACT 112: Negative or not required by law. The above report was generated using voice recognition software. It may contain grammatical, syntax or spelling errors. Electronically signed by: José Miguel Buchanan M.D. 11/07/2024 11:11 AM Medications Administered Home Medications Medication Instructions Recorded Confirmed Last Taken cholecalciferol (vitamin D3) 50 1,000 unit PO HS #90 tabs 09/08/22 11/06/24 11/05/24 mcg (2,000 unit) tablet esomeprazole magnesium 20 mg 10 mg PO UD PRN Acid Reflux 09/08/22 11/06/24 09/28/23 capsule,delayed release (Nexium) amlodipine 5 mg tablet 5 mg PO HS 07/15/23 11/06/24 11/05/24 simvastatin 20 mg tablet 20 mg PO HS 07/15/23 11/06/24 11/05/24 losartan 100 mg tablet 100 mg PO HS #90 tabs 07/19/23 11/06/24 11/05/24 levothyroxine 88 mcg tablet 88 mcg PO HS #90 tabs 09/06/23 11/06/24 11/05/24 Active Medications Generic Name Dose Route Start Last Admin Trade Name Freq PRN Reason Stop Dose Admin Amlodipine Besylate 5 mg 11/06/24 21:00 11/07/24 20:26 Amlodipine Besylate 5 Mg Tab PO 12/06/24 20:59 5 mg HS ZAY Administration Enoxaparin Sodium 40 mg 11/06/24 17:00 11/07/24 16:31 Enoxaparin Inj 40 Mg/0.4 Ml Syr SQ 12/06/24 16:59 Not Given Q24H ZAY Piperacillin Sod/Tazobactam Sod 4.5 gm in 100 mls @ 25 mls/hr 11/06/24 19:30 11/08/24 07:13 Zosyn IV 11/13/24 19:29 Infused Q8H ZAY Infusion Protocol Lactated Ringer's 1,000 mls @ 115 mls/hr 11/07/24 18:45 11/08/24 03:32 Lr IV 11/08/24 12:08 115 mls/hr .[id number] ZAY Administration Levothyroxine Sodium 88 mcg 11/06/24 21:00 11/07/24 20:26 Levothyroxine Sodium 88 Mcg Tablet PO 12/06/24 20:59 88 mcg HS ZAY Administration Losartan Potassium 100 mg 11/06/24 21:00 11/07/24 20:26 Losartan Potassium 50 Mg Tab PO 12/06/24 20:59 100 mg HS ZAY Administration Pantoprazole Sodium 40 mg 11/06/24 16:47 11/07/24 20:31 Pantoprazole 40 Mg Tab PO 12/06/24 16:46 40 mg DAILY PRN Administration Acid Reflux Simvastatin 20 mg 11/06/24 21:00 11/07/24 20:26 Simvastatin 20 Mg Tab PO 12/06/24 20:59 20 mg HS ZAY Administration Vitamin D 25 mcg 11/06/24 21:00 11/07/24 20:26 Cholecalciferol 25 Mcg (1000 Units) Tab PO 12/06/24 20:59 25 mcg HS ZAY Administration PG Care Time/CCT Total # of Minutes Spent Total Time Spent with Patient: Total time spent is greater than 50% in coordination of care (as documented) at patient's floor/unit and/or counseling patient: Coding Level of Care Code 56619 SUB INP/OBS CARE 3/50MIN History Detailed Exam Detailed Diagnoses Ecthyma gangrenosum L08.0 CLL (chronic lymphocytic leukemia) C91.90 Immunocompromised D84.9 Allergy to multiple antibiotics Z88.1
[2024-11-08] MEDS ORDERED: ONDANSETRON 2 MG OD TAB PO PRN (10:19)
--- NOTE | 2024-11-08 13:53 | Discharge Summary ---
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 The patient did develop a centripetal erythematous rash on the afternoon of 11/07, though was not consistent with an IgE mediated reaction based on her associated symptomatology and the temporality with respect to medications administered throughout the day. Most likely it was an adverse effect of intravenous contrast has resolved spontaneously. #Ecthyma gangrenosum Zosyn will be continued through 11/15 for total 10-day course; no evidence of systemic infection at this time, blood cultures were not obtained prior to initiation of therapy in the ED. CT of the lower extremity did not reveal any significant pathology or extending of infection to the subdermal tissues -Continue Zosyn, initiated 11/06 -Continue daily wound care with topical vaseline and non-adherent gauze wrap until seen by their School Transportation Director Admission HPI Per Admitting Provider Ms. Barrera is a 74-year-old female whose active medical conditions include chronic lymphocytic leukemia in sustained remission among other chronic medical conditions with a medical history of multiple actinic keratoses with suspected unspecified malignancy who presents to [facility] by referral of the mechanical engineering specialist due to a left lower extremity wound culture yielding Pseudomonas aeruginosa growth. The patient was initially evaluated by the mechanical engineering specialist on 10/31 for multiple lower extremity wounds; a culture was obtained from the left lower extremity which resulted in this bacterial growth approximately 4 days later. The patient was prescribed a topical gentamicin for initial treatment though there has been no improvement thus they were referred to this Medical Center for evaluation. The patient describes generalized right leg discomfort primarily felt as an achiness that occurs only with firm palpation; this is not affecting their ability to ambulate at home. They have had no recent falls nor injuries that precipitated these wounds. Other than gentamicin ointment they have had no recent antibiotic courses in the past 60 days. Discharge Exam General: Adult female in no acute distress Vital signs: Reviewed HEENT: Normocephalic atraumatic; pupils equally reactive to light, extraocular motions intact; moist mucous membranes with fair dentition Neck: No palpable lymphadenopathy Cardiovascular: Regular rate and rhythm with no murmurs, rubs, or gallops; S1 and S2 normal; bilateral radial and posterior tibial pulses 2+; trace bilateral lower extremity edema distal of the mid leg Gastrointestinal: Soft, nondistended; no palpable masses or organomegaly Skin: On the medial aspect of the left leg there is a 1.5 cm diameter raised erythematous lesion with central scabbing, tender to palpation No longer radiating heat; there is a lesion on the medial aspect of the right leg which is 1 cm in diameter with similar findings, Also no longer radiating heat; there is no expressible discharge or purulence from either of these wounds; proximal to the right lower extremity wound there is a 2 cm area of faintly pink papules that are more tender to palpation than the remaining affected extremity though without any associated scabbing nor radiating heat; there is no popliteal nor inguinal lymphadenopathy of the affected extremity; nor is there evidence of lymphangitis Musculoskeletal: There is no pain with passive range of motion of the knees bilaterally nor ankles Neurologic: The bilateral lower extremities have normal muscle strength and tone without focal deficit; no notable lower extremity paresthesias or numbness; ambulates with the assistance of a walker which has been used for an extended period Discharge Plan Discharge Items Patient Disposition: Home - Home Health Services Reason For Visit: PSUDOMONAL CELLULITIS Discharge Diagnosis: Ecthyma gangrenosum Condition on Discharge: Good Activity: Per Instructions section Lifting: Gradually increase as tolerated Bathing: No limitations Sexual Activity: When tolerated Exercise/Sports: Rest today Driving/Machine Use: No limitations Weightbearing: Full weightbearing Non-emergency contact: Primary Care Provider and Specialist Call non-emergency contact if: you have any medication questions, your symptoms worsen, your pain is worsening, your temperature is above 101 and your wound has increased drainage Follow-up/Referrals: Lanie Rea MD [Outside Practitioners] - 11/12/24 2:45 pm (Patient referred to our medical center due to concern of P. aeruginosa growth from lower extremity wounds; CT obtained during hospitalization without concerning subdermal findings of associated leg lesions. ) Tank Cueva PA-C [Primary Care Provider] - 11/14/24 10:30 am (Hospital follow up scheduled November 14 at 10:30) Linda Manuel DO [Surgeon] - (Ambulatory dysfunction Office requesting records be sent over for review, and they will call PT to schedule.) Diet: Regular Addtl Attending Provider Instructions: Encourage close follow up with your PCP office as well as Dermatology. A referral was provided for a local PMnR physician. Pending Studies at Discharge: No Stand-Alone Forms: My [facility], Smoking Cessation Medications and DC Order Prescriptions: Continued levothyroxine 88 mcg tablet 88 mcg PO HS Qty: 90 3RF cholecalciferol (vitamin D3) 50 mcg (2,000 unit) tablet 1,000 unit PO HS Qty: 90 esomeprazole magnesium [Nexium] 20 mg capsule,delayed release(DR/EC) 10 mg PO UD PRN (Reason: Acid Reflux) Rx Instructions: per pt she takes only a half if needed losartan 100 mg tablet 100 mg PO HS Qty: 90 3RF simvastatin 20 mg tablet 20 mg PO HS amlodipine 5 mg tablet 5 mg PO HS Patient Comments: currently not taking until she gets "her old pills that she used to get, from the 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 supervisor sleeping 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, the new ones look different and made her blood pressure drop really low" Discharge Orders: Discharge Order (Routine); Ordered 11/08/24 Ordered By: Aman Carreon Admission Data Admit Date/Time: 11/07/24 12:02 Attending Provider: Aman Carreon Admit Provider: Aman Carreon Primary Care Provider: Tank Cueva Other Providers: Magnus Loving; [facility],Fax; [facility] Fax Other Interventions: Discharge Summary Assessment (RN) Last Done: 11/08/24 12:48 Hospital Stay Data Consultations 11/06/24 15:14 ED Decision to Admit Stat Diagnostic Imagining Performed 11/07/24 09:29 CT tib/fib RT w con Routine Pending Results Patient Have Any Pending Studies at Discharge: No Discharge Instructions Given to Patient (Per Discharging Provider) Encourage close follow up with your PCP office as well as Dermatology. A referral was provided for a local PMnR physician. Total Time Total Time Spent Total Time Spent (In Minutes): 60 Coding Level of Care Code 28348 INP/OBS DISCH >30 MIN History Detailed Exam Detailed Medical Decision Making High Complexity Diagnoses Ecthyma gangrenosum L08.0 CLL (chronic lymphocytic leukemia) C91.90 Immunocompromised D84.9 Allergy to multiple antibiotics Z88.1
== END 2024-11-08 17:01 | disposition home health service (06) | DRG 603 ==
LOC: 3N 13:46 → ED 13:46 → 3N 16:16